=== PATIENT | male | born 1970 | race Caucasian/White ===

== ENCOUNTER 2022-04-07 08:59 | Day surgery (SDC) | payer BC, SELFPAY ==
[2022-04-01 12:41] VITALS: BMI 28.6
[2022-04-07] MEDS: Lactated Ringers 1,000 ML 50 ML IVCONT (09:18)
[2022-04-07 09:32] VITALS: BP 128/75; PULSE 61; RESP 18; TEMP 36.6; O2SAT 97
--- NOTE | 2022-04-07 10:19 | MHC.SHP ---
Pre-Procedural Eval Section A Date of Service: 04/07/22 Section B Chief Complaint: screening Details of Present Illness: see H&P no changes Relevant Family History (Specify if Yes): No Relevant Social History: None Present Medications: see Short Stay Collaborative assessment Medical History: No relevant PMH History of Previous Operations: No relevant previous surgery Allergies: Allergies Allergy/AdvReac Type Severity Reaction Status Date / Time cinnamon [CINNAMON] AdvReac Unknown oral Verified 04/07/22 09:10 irritation Review of Systems Sugical H&P ROS: Negative: Constitution, Cardiovascular, Respiratory, Neurological, Psychiatric, Hem-Onc, Allergic/Immunologic, Gastrointestinal, Genitourinary, Musculoskeletal, Integumentary, Endocrine and Eyes/Ears/Nose/Throat Exam Surgical H&P Exam: Normal: HEENT, Normal: Heart, Normal: Lungs, Normal: Extremities, Normal: Abdomen, Normal: Skin and Normal: Neurological Plan I have reviewed the history and physical and performed a pertinent physical examination on my patient. No changes have occurred unless specified.
--- NOTE | 2022-04-07 10:56 | P.BOP_ITS ---
Brief Operative Note Date of Service: 04/07/22 Pre-op diagnosis: screening Post-op diagnosis: same (colon polyp) Surgeon: Lewis Reardon Anesthesia: MAC Was an Vehicle And Equipment Cleaner used for this Procedure?: No Estimated blood loss (mL): 2 Pathology: other Condition: stable Disposition: PACU
[2022-04-07 10:59] VITALS: BP 84/47; PULSE 59; RESP 16; TEMP 36.4; O2SAT 96
[2022-04-07 11:06] VITALS: BP 96/54
--- NOTE | 2022-04-07 11:11 | OP_ITS ---
SURGEON: Lewis Reardon MD INDICATIONS: Colon cancer screening. PREOPERATIVE DIAGNOSIS: POSTOPERATIVE DIAGNOSIS: PROCEDURE PERFORMED: Colonoscopy to the terminal ileum with snare polypectomy. ESTIMATED BLOOD LOSS: COMPLICATIONS: ANESTHESIA: Monitored anesthesia care. ASSISTANTS: SPECIMENS: DESCRIPTION OF PROCEDURE: History and physical was performed. The risks and benefits of the procedure were explained to the patient. Informed consent was obtained. The patient was placed in the left lateral decubitus position. A digital rectal exam was performed and was found to be normal. The Olympus pediatric videocolonoscope was introduced into the rectum and advanced to the cecum without difficulty. The cecum was identified by transillumination, palpation, and identification of ileocecal valve. Examination was performed. The scope was removed. He tolerated the procedure well and was returned to recovery area in stable condition. FINDINGS: The terminal ileum was examined and appeared normal. The visualized colonic mucosa was normal. The quality of the prep was good. There was scattered diverticulosis that was mild. A single polyp at 50 cm was removed using a cold snare. The polyp measured approximately 6 mm. No other polyps were identified. Retroflexed examination showed some small internal hemorrhoids. IMPRESSION: Colon polyp. RECOMMENDATION: Follow up the biopsy results. MD LAZARA De La Cruz/SCHUYLER / [id number]
[2022-04-07 11:14] VITALS: BP 106/66; PULSE 56; RESP 18; O2SAT 97
[2022-04-07 11:29] VITALS: BP 118/73; PULSE 58; RESP 18; TEMP 36.7; O2SAT 97
--- NOTE | 2022-04-07 12:44 | P.CONAN_ITS ---
HPI - Anesthesia Eval Consult details Narrative: 51 M for routine colonoscopy [facility] Past Medical History Medical History HTN (hypertension) Hyperlipidemia Migraine headache Family History Family history of problems with anesthesia: No Surgical History Surgical History History of laparoscopic appendectomy History of right knee surgery Hx of colonoscopy History of Problems with Anesthesia: No Social History Social History Patient Tobacco Use Status: Never used Tobacco Are you DNR?: No Advance Directives: No Advance Directives Information Provided: Yes Nutrition Risks: No Nutritional Risk Meds Allergies Allergy/AdvReac Type Severity Reaction Status Date / Time cinnamon [CINNAMON] AdvReac Unknown oral Verified 04/07/22 09:10 irritation Home Medications Medication Instructions Recorded Confirmed Last Taken Type aspirin 81 mg tablet,delayed 81 mg PO DAILY 04/01/22 04/01/22 03/31/22 History release cholecalciferol (vitamin D3) 125 125 mcg PO DAILY 04/01/22 04/01/22 Unknown History mcg (5,000 unit) tablet (Vitamin D3) cyanocobalamin (vitamin B-12) 100 100 mcg PO DAILY 04/01/22 04/01/22 Unknown History mcg tablet (Vitamin B-12) magnesium 04/01/22 04/01/22 Unknown History multivitamin 1 tab PO DAILY 04/01/22 04/01/22 Unknown History propranolol 60 mg capsule,24 60 mg PO DAILY 04/01/22 04/01/22 04/07/22 History hr,extended release turmeric root extract 500 mg tablet 500 mg PO DAILY 04/01/22 04/01/22 Unknown History Exam Exam Date and Time: April 07, 2022 1244 Height,Weight and Vital Signs: Height 6 ft 2 in Weight 223 lb Last Vital Signs Temp 98.0 F 04/07/22 11:29 Pulse 58 04/07/22 11:29 Resp 18 04/07/22 11:29 BP 118/73 04/07/22 11:29 Pulse Ox 97 04/07/22 11:29 O2 Del Method 04/07/22 11:29 Airway Mallampati Class: I TM Dist: >3cm Neck ROM: Full Loose/Missing/Broken Teeth: No (fillings) Assessment and Plan Assessment Anesthesia Assessment: Anesthesia Plan Discussed and Chart Reviewed Final Anesthetic Review Family History of Problems with Anesthesia: No History of Problems with Anesthesia: No NPO: Yes ASA Class: II Final Preanesthetic Review: No Changes in Pt Med Stat, Meds/Allgs Chart Reviewed, Consent Obtained/Reviewed and Anes Risks/Benef Reviewed Patient Risk: Low Procedure Risk: Low Anesthetic Plan Anesthetic Plan: MAC: Disposition: Standard PACU
== END 2022-04-07 11:49 | disposition home or self-care (01) ==
PROVIDERS: PCP Internal Medicine; Visit Provider Internal Medicine Gastroenterology
PROC: 0DJD8ZZ Inspection of Lower Intestinal Tract, Via Natural or Artificial Opening Endoscopic (ICD-10-PCS; CPT 45378; principal; 2022-04-07 09:40)
DX: Z12.11 Encounter for screening for malignant neoplasm of colon (principal); K63.5 Polyp of colon; K57.30 Diverticulosis of large intestine without perforation or abscess without bleeding; K64.8 Other hemorrhoids; I10 Essential (primary) hypertension; E78.00 Pure hypercholesterolemia, unspecified; G43.909 Migraine, unspecified, not intractable, without status migrainosus; Z79.82 Long term (current) use of aspirin; Z79.899 Other long term (current) drug therapy
CPT/HCPCS: 45385; 88305

== ENCOUNTER 2023-05-16 22:15 | Emergency (ER) | payer OTHER, SELFPAY ==
--- NOTE | ~2023-05-16 | CT_ITS ---
EXAMINATION: CT ABDOMEN AND PELVIS WITHOUT CONTRAST CLINICAL INFORMATION: Right flank pain COMPARISON: None available. TECHNIQUE: Multidetector volumetric imaging was performed from the superior aspect of the liver through the pubic symphysis. Sagittal and coronal reformatted images were obtained on the technologist's workstation. This CT examination was performed using dose optimization techniques as appropriate, variously including the following: *Automated exposure control *Adjustment of mA and/or kV according to patient size (this includes techniques or standardized protocols for targeted exams where dose is matched to indication/reason for exam; i.e. extremities or head) *Use of iterative reconstruction technique DLP: 729 mGy-cm FINDINGS: LUNG BASES: The visualized lung bases are unremarkable. LIVER, GALLBLADDER, AND BILIARY TREE: The liver is normal in size, shape, and attenuation. No focal hepatic lesion or biliary ductal dilatation is present. Multiple small gallstones layering dependently in the gallbladder. PANCREAS: Unremarkable. SPLEEN: Unremarkable. ADRENAL GLANDS: Unremarkable. KIDNEYS AND URETERS: The kidneys are normal in size, shape, and attenuation. No hydronephrosis, hydroureter, or calculi seen. No perinephric stranding. BLADDER: Unremarkable. GASTROINTESTINAL TRACT: There are scattered diverticula of the sigmoid colon. There is no diverticulitis. There is no bowel wall thickening /edema. There is no bowel obstruction. There is a small to moderate volume of stool in the colon. The appendix is surgically absent . The small bowel loops are unremarkable. The stomach is normal. There is no hiatal hernia. ABDOMINAL WALL: No significant hernia is appreciated. LYMPH NODES: Normal. VASCULAR: Unremarkable. PELVIC VISCERA: Unremarkable. OSSEOUS STRUCTURES: Unremarkable. CT/CT abdomen pelvis wo IV con IMPRESSION: No acute abnormality CT scan abdomen pelvis. Fleischner guidelines were followed.
[2023-05-16 22:28] VITALS: BP 169/84; PULSE 56; RESP 16; TEMP 36.6; O2SAT 98; BMI 26.8
[2023-05-16] MEDS: ondansetron HCL 4 MG/2 ML VIAL IVPUSH (22:58)
[2023-05-16 22:59] VITALS: BP 171/91; PULSE 52; RESP 18; O2SAT 99
--- NOTE | 2023-05-16 23:10 | ED.ABDPAIN ---
HPI - Abdominal Pain General Chief Complaint: Abdominal Pain Stated Complaint: hernia, worsening pain in stomach Time Seen by Provider: 05/16/23 23:10 Source: patient Mode of arrival: ambulatory Limitations: no limitations History of Present Illness HPI narrative: Patient otherwise healthy with complaining of pain in the right mid abdomen and flank area for last 3 weeks off and on no relation with food feels slightly nauseated no urinary complaints no hematuria no frequency has seen his PCP who suspected as a hernia no history of gallstones patient is status post appendectomy Related Data Home Medications Medication Instructions Recorded Confirmed aspirin 81 mg tablet,delayed 81 mg PO DAILY 04/01/22 04/01/22 release cholecalciferol (vitamin D3) 125 125 mcg PO DAILY 04/01/22 04/01/22 mcg (5,000 unit) tablet (Vitamin D3) cyanocobalamin (vitamin B-12) 100 100 mcg PO DAILY 04/01/22 04/01/22 mcg tablet (Vitamin B-12) magnesium 04/01/22 04/01/22 multivitamin 1 tab PO DAILY 04/01/22 04/01/22 propranolol 60 mg capsule,24 60 mg PO DAILY 04/01/22 04/01/22 hr,extended release turmeric root extract 500 mg tablet 500 mg PO DAILY 04/01/22 04/01/22 Previous Rx's Medication Instructions Recorded ibuprofen 600 mg tablet 600 mg PO Q6H PRN fever or pain 05/17/23 #30 tabs Allergies Allergy/AdvReac Type Severity Reaction Status Date / Time cinnamon [CINNAMON] AdvReac Unknown oral Verified 04/07/22 09:10 irritation Review of Systems Review of Systems Yes all other systems are reviewed and are negative [facility] Past Medical History Medical History HTN (hypertension) Hyperlipidemia Migraine headache Surgical History History of laparoscopic appendectomy History of right knee surgery Hx of colonoscopy Social History Social History Alcohol intake: never Patient Tobacco Use Status: Never used Tobacco Smoked in Last 30 Days: No Use of substances other than those prescribed or required for medical reasons: No Advance Directives: No Advance Directives Information Provided: No Physical Exam ED Vital Signs: Vital Signs - 24 hr 05/16/23 22:28 05/16/23 22:59 Temperature 97.9 F Pulse Rate 56 52 Respiratory Rate 16 18 Blood Pressure 169/84 H 171/91 H Pulse Oximetry 98 99 Oxygen Delivery Method Room Air Room Air BMI result Body Mass Index 26.8 Appearance: Alert. Oriented X3. No acute distress. Eyes: PERRLA, No Nystagmus ENT: Pharynx normal. Oral Mucosa moist Neck: Normal inspection. Neck supple. CVS: Normal heart rate and rhythm. Pulses normal. Respiratory: No respiratory distress. Equal air entry bilateral, no wheezing/rales/rhonchi Abdomen: Soft and mild deep tenderness right mid abdomen Rodney sign negative. Bowel sounds are present, no mass palpable, no CVA tenderness Skin: Skin warm and dry. Normal skin color. Normal skin turgor. Extremities: No lower extremity edema. No calf tenderness Neuro: Oriented X 3. No motor deficit. No sensory deficit.No cerebellar signs , cranial nerves II-XII intact Medical Decision Making Medical Decision Making [facility] Narrative: Patient has gallstones in the CT scan without any cholecystitis findings no kidney stone noticed labs were normal patient advised to follow with surgeon Differential Diagnosis Differential Diagnoses: The differential diagnosis associated with the presentation includes Renal colic/UTI/gallstones Lab Data [facility] Lab Attestation statement: I reviewed the patient's lab results. 05/16/23 23:05 05/16/23 23:05 Labs: Lab Results 05/16/23 05/16/23 05/16/23 Range/Units 23:05 23:05 23:30 WBC 7.2 (4.8-10.8) X10*3/uL RBC 4.82 (4.60-5.80) X10*6/uL Hgb 15.3 (14.0-18.0) g/dl Hct 45.3 (42.0-52.0) % MCV 94.0 (80.0-98.0) fL MCH 31.7 (27.0-33.0) pg MCHC 33.8 (31.0-36.0) g/dl RDW 12.4 (11.0-16.0) % Plt Count 229 (160-400) X10*3/uL MPV 9.0 L (9.4-12.4) fL Immature Gran % (Auto) 0.1 (0.0-0.4) % Neut % (Auto) 60.4 (45-73) % Lymph % (Auto) 26.8 (20-40) % [place] % (Auto) 9.7 (2-11) % Eos % (Auto) 2.6 (0-4) % Baso % (Auto) 0.4 (0-2) % Lymph # (Auto) 1.9 (1.2-4.9) X10*3/uL [place] # (Auto) 0.7 (0.1-1.2) X10*3/uL Eos # (Auto) 0.2 (0.0-0.4) X10*3/uL Baso # (Auto) 0.0 (0.0-0.2) X10*3/uL Abs Immat Gran (auto) 0.01 (0.00-0.03) X10*3/uL Absolute Neuts (auto) 4.4 (2.0-8.3) x10*3/uL Absolute Nucleated RBC 0.000 (0.0-0.012) X10*3/uL Nucleated RBC % (auto) 0.0 (0.0-0.2) /100WBC Sodium 140 (135-145) mmol/L Potassium 4.5 (3.3-5.1) mmol/L Chloride 105 (96-108) mmol/L Carbon Dioxide 28 (22-29) mmol/L Anion Gap 12 (12-20) BUN 20 H (9-16) mg/dL Creatinine 0.93 (0.5-1.4) mg/dL Estim Creat Clear Calc 114.0 Estimated GFR > 60 Random Glucose 110 (60-115) mg/dL Calcium 9.5 (8.4-10.2) mg/dL Total Bilirubin 0.5 (0.0-1.0) mg/dL AST 26 (5-37) U/L ALT 27 (0-40) U/L Alkaline Phosphatase 57 (39-117) U/L Total Protein 7.5 (6.5-8.0) g/dL Albumin 4.4 (3.5-5.0) g/dL Urine Color Yellow Urine Appearance Clear Urine pH 5.5 (5.0-9.0) Ur Specific [place] 1.025 (1.005-1.025) Urine Protein Negative (Neg-Trace) mg/dL Urine Glucose (UA) Negative (Negative) mg/dL Urine Ketones Negative (Negative) mg/dL Urine Blood Negative (Negative) Urine Nitrite Negative (Negative) Ur Leukocyte Esterase Negative (Negative) Urine RBC 0-2 (0-2) /HPF Urine WBC 0-5 (0-5) /HPF Ur Squamous Epith Cells 0-2 (0-2) /HPF Urine Bacteria None Seen (None Seen) Hyaline Casts 0-2 (0-2) /LPF Radiology Impression Discussion of test interpretation with radiology: I have reviewed the radiologist's reading. Radiologist Impression: [address] [address] [address] Scan Report Signed Patient: Payam Dejesus MR#: [id number] : 1970 Acct:[id number] Age/Sex: 52 / M ADM Date: 05/16/23 Loc: HO.ED Attending Dr: Ordering Physician: Fred Potts MD Date of Service: 05/16/23 Procedure(s): CT abdomen pelvis wo IV con Accession Number(s): [id number] cc: Richar Lopez MD; Fred Potts MD~ EXAMINATION: CT ABDOMEN AND PELVIS WITHOUT CONTRAST? CLINICAL INFORMATION: Right flank pain? COMPARISON: None available. TECHNIQUE: Multidetector volumetric imaging was performed from the superior aspect of the liver through the pubic symphysis. Sagittal and coronal reformatted images were obtained on the technologist's workstation.? This CT examination was performed using dose optimization techniques as appropriate, variously including the following: *Automated exposure control *Adjustment of mA and/or kV according to patient size (this includes techniques or standardized protocols for targeted exams where dose is matched to indication/reason for exam; i.e. extremities or head) *Use of iterative reconstruction technique DLP: 729 mGy-cm FINDINGS: LUNG BASES: The visualized lung bases are unremarkable.? LIVER, GALLBLADDER, AND BILIARY TREE: The liver is normal in size, shape, and attenuation. No focal hepatic lesion or biliary ductal dilatation is present. Multiple small gallstones layering dependently in the gallbladder.? PANCREAS: Unremarkable.? SPLEEN: Unremarkable.? ADRENAL GLANDS: Unremarkable.? KIDNEYS AND URETERS: The kidneys are normal in size, shape, and attenuation. No hydronephrosis, hydroureter, or calculi seen. No perinephric stranding. ? BLADDER: Unremarkable.? GASTROINTESTINAL TRACT: There are scattered diverticula of the sigmoid colon. There is no diverticulitis. There is no bowel wall thickening /edema. There is no bowel obstruction. There is a small to moderate volume of stool in the colon. The appendix is surgically absent . The small bowel loops are unremarkable. The stomach is normal. There is no hiatal hernia.? ABDOMINAL WALL: No significant hernia is appreciated.? LYMPH NODES: Normal. VASCULAR: Unremarkable. PELVIC VISCERA: Unremarkable.? OSSEOUS STRUCTURES: Unremarkable.? CT/CT abdomen pelvis wo IV con IMPRESSION: No acute abnormality CT scan abdomen pelvis. ? Fleischner guidelines were followed. Dictated By: Emre Pena MD Signed By: <Electronically signed by Emre Pena MD in OV> 05/16/23 2349 DD/ 2330 TD/TT:? Charge Attendant: GRAHAM Medications Administered Discontinued Medications Generic Name Dose Route Start Last Admin Trade Name Freq PRN Reason Stop Dose Admin Sodium Chloride 1,000 mls @ 999 mls/hr 05/16/23 23:15 05/17/23 00:20 Ns IV 05/17/23 00:15 Infused .Q1H1M ONE Infusion Ketorolac Tromethamine 30 mg 05/16/23 23:14 05/16/23 23:25 Ketorolac Tromethamine 30 Mg/Ml Vial IVPUSH 05/16/23 23:15 30 mg ONCE ONE Administration Ondansetron HCl 4 mg 05/16/23 22:54 05/16/23 22:58 Ondansetron Hcl 4 Mg/2 Ml Vial IVPUSH 05/16/23 22:55 4 mg ONCE ONE Administration Discharge Plan Discharge Clinical Impression: Cholelithiasis Patient Disposition: Home, Self-Care Instructions: Gallstones (ED) Additional Instructions: Avoid fried food Follow with surgeon for gallstones Report to the ER if worsening of pain Ibuprofen for pain Prescriptions: New ibuprofen 600 mg tablet 600 mg PO Q6H PRN (Reason: fever or pain) Qty: 30 0RF No Action multivitamin Tablet 1 tab PO DAILY cyanocobalamin (vitamin B-12) [Vitamin B-12] 100 mcg Tablet 100 mcg PO DAILY propranolol 60 mg Capsule,Extended Release 24 Hr 60 mg PO DAILY aspirin 81 mg Tablet,Delayed Release (Dr/Ec) 81 mg PO DAILY cholecalciferol (vitamin D3) [Vitamin D3] 125 mcg (5,000 unit) Tablet 125 mcg PO DAILY turmeric root extract 500 mg Tablet 500 mg PO DAILY magnesium Referrals: Terrell Adorno MD [Physician] - 5 days
[2023-05-16 23:11] LABS: Basophils Percent Auto 0.4 % (0-2); Eosinophils Absolute Auto 0.2 X10*3/uL (0.0-0.4); Eosinophils Percent Auto 2.6 % (0-4); Hematocrit 45.3 % (42.0-52.0); Hemoglobin 15.3 g/dl (14.0-18.0); Imm Gran Abs Auto 0.01 X10*3/uL (0.00-0.03); Imm Gran Pct Auto 0.1 % (0.0-0.4); Lymphocytes Absolute Auto 1.9 X10*3/uL (1.2-4.9); Lymphocytes Percent Auto 26.8 % (20-40); MANUAL DIFF FLAG NO; Mean Corpuscular HGB Conc 33.8 g/dl (31.0-36.0); Mean Corpuscular Hemoglobin 31.7 pg (27.0-33.0); Monocytes Absolute Auto 0.7 X10*3/uL (0.1-1.2); Monocytes Percent Auto 9.7 % (2-11); Neutrophils Absolute Auto 4.4 x10*3/uL (2.0-8.3); Neutrophils Percent Auto 60.4 % (45-73); Platelet Count 229 X10*3/uL (160-400); Red Blood Count 4.82 X10*6/uL (4.60-5.80); Red Cell Distribution Width 12.4 % (11.0-16.0); White Blood Count 7.2 X10*3/uL (4.8-10.8)
[2023-05-16] MEDS: 0.9 % Sodium Chloride 1,000 ML 999 ML IV (23:25)
[2023-05-16] MEDS: Ketorolac Tromethamine 30 MG/ML VIAL IVPUSH (23:25)
[2023-05-16 23:27] LABS: Alanine Aminotransferase 27 U/L (0-40); Albumin Level 4.4 g/dL (3.5-5.0); Alkaline Phosphatase 57 U/L (39-117); Anion Gap 12 (12-20); Aspartate Amino Transferase 26 U/L (5-37); Bilirubin Total 0.5 mg/dL (0.0-1.0); Blood Urea Nitrogen 20 mg/dL (9-16); Calcium 9.5 mg/dL (8.4-10.2); Carbon Dioxide 28 mmol/L (22-29); Chloride 105 mmol/L (96-108); Estimated Glomerular Filt Rate > 60; Glucose Random 110 mg/dL (60-115); Potassium 4.5 mmol/L (3.3-5.1); Sodium 140 mmol/L (135-145); Total Protein 7.5 g/dL (6.5-8.0)
[2023-05-16 23:36] LABS: Appearance Urine Clear; Color Urine Yellow; Glucose Urine UA Negative (Negative); Leukocyte Esterase Urine Negative (Negative); Nitrite Urine Negative (Negative); PH 5.5 (5.0-9.0); Specific Gravity - Urine 1.025 (1.005-1.025); Urine Blood Negative (Negative); Urine Ketones Negative (Negative); Urine Protein Negative (Neg-Trace)
[2023-05-16 23:41] LABS: Bacteria Urine None Seen (None Seen); Hyaline Casts Urine 0-2 /LPF (0-2); RBC Urine 0-2 /HPF (0-2); Squamous Epithelial Cell Urine 0-2 /HPF (0-2); WBC Urine 0-5 /HPF (0-5)
== END 2023-05-17 00:33 | disposition home or self-care (01) ==
PROVIDERS: Emergency Provider Internal Medicine; PCP Internal Medicine
DX: K80.20 Calculus of gallbladder without cholecystitis without obstruction (principal); R10.9 Unspecified abdominal pain; Z79.899 Other long term (current) drug therapy
CPT/HCPCS: 36415; 74176; 80053; 81001; 85025; 96361; 96374; 96375; 99284; 99285; J1885; J2405

== ENCOUNTER 2023-05-20 10:12 | Outpatient (AMB) | payer OTHER, SELFPAY ==
[2023-05-20 10:22] VITALS: BP 141/62; PULSE 63; BMI 26.7
--- NOTE | 2023-05-20 10:22 | A.OFFVIS_ITS ---
Intake Vital Signs 05/20/23 10:22 Height 6 ft 4 in Weight 219 lb BMI 26.7 BP 141/62 H Blood Pressure Location Rt brachial Position Sitting Pulse 63 Intake Visit Reasons: Cholelithiasis, possible hernia Intake Note: This patient presents for an assessment for cholelithiasis and possible hernia. Patient c/o; Onset 1 month right groin weird sensation , reports RUQ pain radiating towards back, reports having nausea and vomiting, reports recent ER visit on 05/16/23 had Abd/pelvis Ct. Private Duty Nurse Required: No Accompanied by: Self / Same As Patient Allergies cinnamon [CINNAMON] Adverse Reaction (Unknown, Verified 05/20/23 10:31) oral irritation Medication List - Last Reconciled 05/20/23 by Terrell Adorno MD aspirin 81 mg PO DAILY cholecalciferol (vitamin D3) (Vitamin D3) 125 mcg PO DAILY cyanocobalamin (vitamin B-12) (Vitamin B-12) 100 mcg PO DAILY ibuprofen 600 mg PO Q6H PRN [magnesium ] multivitamin 1 tab PO DAILY propranolol ER 60 mg PO DAILY turmeric root extract 500 mg PO DAILY HPI Cholelithiasis, possible hernia HPI Details 52-year-old male referred for gallstones . He went to the ER last 05/16/2023 because of right upper quadrant pain radiating to the back. His CAT scan revealed multiple small gallstones. His LFTs were normal. He said he has had these episodes on and off for a couple of years now. He says that this usually happen after he has have big meal. He says that he had a particularly severe episode just before he went to the ER. He says that because of the pain he was also nauseous at that time. [facility] Medical History (Updated 05/20/23 @ 11:03 by Terrell Adorno MD) Gallstones Migraine headache Hyperlipidemia HTN (hypertension) Surgical History History of right knee surgery History of laparoscopic appendectomy Hx of colonoscopy Social History Alcohol intake: never Patient Tobacco Use Status: Never used Tobacco Review of Systems Const Denies chills and Denies fever(s) Card Denies chest pain, Denies dyspnea and Denies dyspnea on exertion Resp Denies cough, Denies dyspnea and Denies dyspnea on exertion GI Denies hematochezia and Denies change in bowel habits Denies hematuria and Denies difficulty urinating Musc Denies back pain and Denies limited range of motion Neuro Details: Migraines Denies focal weakness and Denies convulsions Psych Denies depression and Denies mood swings Physical Exam Vital Signs: Last Vital Signs Pulse 63 05/20/23 10:22 BP 141/62 H 05/20/23 10:22 BMI result Body Mass Index 26.7 Const General: comfortable and no acute distress Orientation/consciousness: patient oriented x3 Neck Neck: Yes no lymphadenopathy Resp Auscultation: clear to auscultation bilaterally Cardio Rhythm: regular rhythm GI Palpation (GI): Soft to palpation, nontender and no guarding Neuro General: patient oriented x3 Assessment & Plan Assessment & Plan (1) Gallstones: Code(s): K80.20 - Calculus of gallbladder without cholecystitis without obstruction Plan: He has gallstones seen on CT scan with associated symptoms of right quadrant pain. Had a long discussion with him about the option of proceeding with cholecystectomy. I discussed the technique of laparoscopic cholecystectomy and possible open cholecystectomy. I reviewed the risks including but not limited to bleeding, infections, bowel injury, injury to the liver or the bile ducts, bile leak, retained stones, as well as the benefits and alternatives. I reviewed with him what to expect postoperatively. He says he is planning to have the surgery done because of symptoms but is uncertain as to when as he has been very busy with regards to work. He says that he has some occasional right groin pain and I reviewed his CAT scan and this does not reveal a hernia on the right groin area. Coding Level of Care Code New Pt Level 3 (33194) Diagnoses Gallstones K80.20
== END 2023-05-20 11:09 | disposition home or self-care (01) ==
PROVIDERS: PCP Internal Medicine; Visit Provider Surgery
DX: K80.20 Calculus of gallbladder without cholecystitis without obstruction (principal)
CPT/HCPCS: 99203

== ENCOUNTER → 2023-05-20 10:12 | Outpatient (BNVA) | payer OTHER, SELFPAY | PROVIDERS: PCP Internal Medicine; Visit Provider Surgery ==

== ENCOUNTER 2023-07-30 07:27 | Day surgery (SDC) | payer OTHER, SELFPAY ==
[2023-07-28 13:33] VITALS: BMI 26.7
--- NOTE | 2023-07-29 09:35 | P.CONAN_ITS ---
Documented by User: Delaney Anderson NP 07/29/23 09:35 HPI - Anesthesia Eval Consult details Narrative: 52yo F for Cholecystectomy Laparoscopic, possible open PMFSH Active Problems Active Problems: All Active Problems (Updated 05/20/23 @ 11:03 by Terrell Adorno MD) Gallstones (Acute) Past Medical History Medical History (Updated 05/20/23 @ 11:03 by Terrell Adorno MD) Gallstones Migraine headache Hyperlipidemia HTN (hypertension) Family History Family history of problems with anesthesia: No Surgical History Surgical History (Updated 07/28/23 @ 13:31 by Nani Arriaza RN) History of right knee surgery History of laparoscopic appendectomy Hx of colonoscopy History of Problems with Anesthesia: No Social History Alcohol intake: never Patient Tobacco Use Status: Never used Tobacco Are you DNR?: No Advance Directives: No Advance Directives Information Provided: Yes Meds Allergies Allergy/AdvReac Type Severity Reaction Status Date / Time cinnamon [CINNAMON] AdvReac Unknown oral Verified 05/20/23 10:31 irritation Home Medications Medication Instructions Recorded Confirmed Last Taken Type aspirin 81 mg tablet,delayed 81 mg PO DAILY 04/01/22 07/28/23 07/29/23 History release cholecalciferol (vitamin D3) 125 125 mcg PO DAILY 04/01/22 07/28/23 Unknown History mcg (5,000 unit) tablet (Vitamin D3) cyanocobalamin (vitamin B-12) 100 100 mcg PO DAILY 04/01/22 07/28/23 Unknown History mcg tablet (Vitamin B-12) magnesium 04/01/22 05/20/23 Unknown History multivitamin 1 tab PO DAILY 04/01/22 07/28/23 Unknown History propranolol 60 mg capsule,24 60 mg PO DAILY 04/01/22 07/28/23 04/07/22 History hr,extended release turmeric root extract 500 mg tablet 500 mg PO DAILY 04/01/22 07/28/23 Unknown History Exam Height,Weight and Vital Signs: Height 6 ft 4 in Weight 99.337 kg Pertinent Lab Results Pertinent Lab Results: Laboratory Tests 05/16/23 23:05 WBC 7.2 Hgb 15.3 Hct 45.3 Plt Count 229 Sodium 140 Potassium 4.5 Chloride 105 Carbon Dioxide 28 BUN 20 H Creatinine 0.93 Assessment and Plan Assessment Anesthesia Assessment: Chart Reviewed Final Anesthetic Review Family History of Problems with Anesthesia: No History of Problems with Anesthesia: No Documented by User: Moises Ramos MD 08/05/23 16:42 [facility] Past Medical History Medical History (Updated 05/20/23 @ 11:03 by Terrell Adorno MD) Gallstones Migraine headache Hyperlipidemia HTN (hypertension) Functional capacity: independent ambulation Surgical History Surgical History (Updated 07/28/23 @ 13:31 by Nani Arriaza RN) History of right knee surgery History of laparoscopic appendectomy Hx of colonoscopy Social History Alcohol intake: never Patient Tobacco Use Status: Never used Tobacco Are you DNR?: No Advance Directives: No Advance Directives Information Provided: Yes Meds Allergies Allergy/AdvReac Type Severity Reaction Status Date / Time cinnamon [CINNAMON] AdvReac Unknown oral Verified 05/20/23 10:31 irritation Home Medications Medication Instructions Recorded Confirmed Last Taken Type aspirin 81 mg tablet,delayed 81 mg PO DAILY 04/01/22 07/28/23 07/29/23 History release cholecalciferol (vitamin D3) 125 125 mcg PO DAILY 04/01/22 07/28/23 Unknown History mcg (5,000 unit) tablet (Vitamin D3) cyanocobalamin (vitamin B-12) 100 100 mcg PO DAILY 04/01/22 07/28/23 Unknown History mcg tablet (Vitamin B-12) magnesium 04/01/22 05/20/23 Unknown History multivitamin 1 tab PO DAILY 04/01/22 07/28/23 Unknown History propranolol 60 mg capsule,24 60 mg PO DAILY 04/01/22 07/28/23 04/07/22 History hr,extended release turmeric root extract 500 mg tablet 500 mg PO DAILY 04/01/22 07/28/23 Unknown History Exam Airway Mallampati Class: IV TM Dist: >3cm Neck ROM: Full Loose/Missing/Broken Teeth: Yes (chipped teeth) Assessment and Plan Assessment Anesthesia Assessment: Anesthesia Plan Discussed Final Anesthetic Review NPO: Yes ASA Class: II Final Preanesthetic Review: Meds/Allgs Chart Reviewed, Consent Obtained/Reviewed and Anes Risks/Benef Reviewed Patient Risk: Intermediate Procedure Risk: Intermediate Anesthetic Plan Anesthetic Plan: GA and Agree w/ Assess. and Plan Disposition: Standard PACU
[2023-07-30] VITALS (8 sets, daily range): BP systolic 106–139; BP diastolic 59–78; PULSE 55–73; RESP 15–18; TEMP 36.1–37.1; O2SAT 95–98; BMI 26.7
[2023-07-30] MEDS: Lactated Ringers 1,000 ML 100 ML IVCONT (08:01)
--- NOTE | 2023-07-30 08:59 | MHC.SHP ---
Pre-Procedural Eval Section A Date of Service: 07/30/23 Section B Chief Complaint: Calculus of gallbladder without cholecystitis with Details of Present Illness: has galltones with symptoms, now ready to proceed with lap paresh Relevant Family History (Specify if Yes): No Relevant Social History: None Present Medications: see Short Stay Collaborative assessment Medical History: No relevant PMH Allergies: Allergies Allergy/AdvReac Type Severity Reaction Status Date / Time cinnamon [CINNAMON] AdvReac Unknown oral Verified 05/20/23 10:31 irritation Review of Systems Sugical H&P ROS: Negative: Constitution, Cardiovascular, Respiratory, Neurological, Psychiatric, Hem-Onc, Allergic/Immunologic, Gastrointestinal, Genitourinary, Musculoskeletal, Integumentary, Endocrine and Eyes/Ears/Nose/Throat Exam Surgical H&P Exam: Normal: HEENT, Normal: Heart, Normal: Lungs, Normal: Extremities, Normal: Abdomen, Normal: Skin and Normal: Neurological Plan Diagnosis/Plan: Unchanged I have reviewed the history and physical and performed a pertinent physical examination on my patient. No changes have occurred unless specified. Time Spent With Patient Time: Total time managing care of this patient today ____ minutes.
--- NOTE | 2023-07-30 09:47 | P.OP_ITS ---
Operative Note Operative Note Date of Service: 07/30/23 Narrative: Preop diagnosis: Symptomatic gallstones Postop diagnosis: The same Procedure: Laparoscopic cholecystectomy Surgeon: Terrell Adorno MD transportation assistant: WILLA Ibarra The patient is a 52-year-old male noted to have gallstones with periodic right upper quadrant pain. In view of his symptomatic gallstones, he wanted to proceed with cholecystectomy. He understood the technique of laparoscopic cholecystectomy. He was aware of the risks, benefits, and alternatives. He was brought to the operating room. He was placed supine under general anesthesia via endotracheal tube. The abdomen was prepped and draped in the usual sterile fashion. A surgical time-out was done. The patient received Cefotan 2 g IV preoperatively. I made a short supraumbilical incision using a blade 15. This was carried down through the full-thickness of the skin and subcutaneous fat down to the fascia. The fascia was incised. The peritoneum was entered. Through this incision a Deshawn port was introduced. Pneumoperitoneum was introduced to a pressure of 15 mm hg. From here on the rest of the procedure was done under vision with a 10 mm 0 degree laparoscope. With laparoscopic visualization, I inserted a 5/12 mm port in the epigastric area below the subcostal margin. Two 5 mm ports were introduced through small incisions below the subcostal margin along the anterior axillary line and the midclavicular line. Graspers were placed through these working ports. The patient was placed in head-up and [id number] position. The gallbladder was seen. This was supple and non inflamed. I applied a grasper towards the fundus and this was used to retract the gallbladder cephalad. I applied another grasper towards the pouch of the gallbladder and this was used to retract the gallbladder laterally. At this point, the gallbladder was being retracted in a cephalad and lateral fashion to put the area of the area of the cystic duct on stretch. I proceeded to use the [place] dissector to carefully dissect the neck of the gallbladder of fatty areolar tissue. By doing so I was able to visualize the cystic duct. I carefully defined this using the [place] dissector. I was able to confirm the confluence of the neck of the gallbladder with the cystic duct. We were able to achieve a critical view of the hepatocystic triangle and there were no other structures seen except for what appeared to be a small cystic artery. I applied clips on the cystic duct with 2 clips being applied distally. The cystic duct was transected between clips with Endo scissors. I applied clips on the cystic artery with 2 clips being applied distally and the cystic artery was instructed between clips with Endo scissors With traction on the gallbladder away from the liver bed, I proceeded to then divide across the hilum using the electrocautery spatula. I incised the peritoneum of the gallbladder and found a plane of dissection between the gallbladder wall and the liver bed. I proceeded to separate the gallbladder off of the liver bed along this well-defined plane using a combination of blunt dissection with the tip of the spatula and electrocautery. We continued with this dissection all way to the fundus until the entire gallbladder was completely from the liver bed. The gallbladder was retrieved through an endobag through the umbilical incision. I reinserted all ports and re-in sufflated. I examined the subhepatic space and the liver bed. This was noted to be dry and hemostatic. The clips were in place. I examined all 4 quadrants laparoscopically. There was no other pathology seen. There was no suggestion of any bowel injury. I re-examined the subhepatic space one final time and this appeared to be dry. I therefore desufflated through the port sites. I removed all ports under vision with the laparoscope. The umbilical port was removed last. The fascia of the umbilical incision was closed with [id number] Polysorb 0 stitch. Skin closure was achieved on all incisions using polysord 4-0 subcuticular running sutures. All incisions were infiltrated with Marcaine 0.5% for postop analgesia. Dressings were applied. The procedure was completed. The patient tolerated the procedure well. There were no immediate complications. Initial and final counts of sponges and instruments were correct. Estimated blood loss was about 10 cc The patient was extubated without difficulty and transferred to the recovery room with stable vital signs.
[2023-07-30] MEDS: oxyCODONE HCl Immed Release 5 MG TABLET PO (11:46)
== END 2023-07-30 11:49 | disposition home or self-care (01) ==
PROVIDERS: PCP Internal Medicine; Visit Provider Surgery
PROC: 0FT44ZZ Resection of Gallbladder, Percutaneous Endoscopic Approach (ICD-10-PCS; CPT 47562; principal; 2023-07-30 09:00)
DX: K80.20 Calculus of gallbladder without cholecystitis without obstruction (principal); I10 Essential (primary) hypertension; E78.5 Hyperlipidemia, unspecified; G43.909 Migraine, unspecified, not intractable, without status migrainosus; Z79.82 Long term (current) use of aspirin; Z79.1 Long term (current) use of non-steroidal anti-inflammatories (NSAID); Z79.899 Other long term (current) drug therapy; Z98.890 Other specified postprocedural states
CPT/HCPCS: 47562; 88304; J0131; J0665; J1100; J1170; J2250; J2405; J2704; J3010

== ENCOUNTER → 2023-07-30 07:27 | Outpatient (BNV) | payer OTHER, SELFPAY | PROVIDERS: PCP Internal Medicine; Visit Provider Surgery | DX: K80.20 Calculus of gallbladder without cholecystitis without obstruction (principal) | CPT/HCPCS: 47562 ==

== ENCOUNTER 2023-08-12 09:21 | Outpatient (AMB) | payer OTHER, SELFPAY ==
--- NOTE | 2023-08-12 09:22 | MHC.OFFVIS ---
Intake Vital Signs 08/12/23 09:28 Weight 224 lb BP 148/70 H Blood Pressure Location Rt brachial Position Sitting Pulse 57 Intake Visit Reasons: S/p lap paresh Intake Note: This patient presents for a post-op assessment status post laparoscopic cholecystectomy. Patient c/o; reports no changes or complaints at this time. Still Operator Whiskey Required: No Accompanied by: Self / Same As Patient Allergies cinnamon [CINNAMON] Adverse Reaction (Unknown, Verified 08/12/23 09:22) oral irritation HPI S/p lap paresh HPI Details He is here for a postop visit. He underwent laparoscopic cholecystectomy last 07/30/2023. He tolerated procedure well. He currently denies complaints. COUNTS INCLUDE 234 BEDS AT THE [facility] Medical History Gallstones Migraine headache Hyperlipidemia HTN (hypertension) Surgical History Hx laparoscopic cholecystectomy (~07/30/23) History of right knee surgery History of laparoscopic appendectomy Hx of colonoscopy Social History Alcohol intake: never Patient Tobacco Use Status: Never used Tobacco Review of Systems Const Denies chills and Denies fever(s) Card Denies chest pain, Denies dyspnea and Denies dyspnea on exertion Resp Denies cough, Denies dyspnea and Denies dyspnea on exertion GI Denies hematochezia and Denies change in bowel habits Denies hematuria and Denies difficulty urinating Musc Denies back pain and Denies limited range of motion Neuro Denies focal weakness and Denies convulsions Psych Denies depression and Denies mood swings Physical Exam Vital Signs: Last Vital Signs Pulse 57 08/12/23 09:28 BP 148/70 H 08/12/23 09:28 Const General: comfortable and no acute distress Eyes Sclerae: sclerae normal GI Other: All incisions well healed, not infected, Palpation (GI): Soft to palpation and not firm Assessment & Plan Assessment & Plan (1) Gallstones: Code(s): K80.20 - Calculus of gallbladder without cholecystitis without obstruction Plan: Status post cholecystectomy. He is doing very well. All incisions are well healed. His path report shows gallstones and mild chronic cholecystitis I advised him to avoid any lifting more than 20 lb for about 2 more weeks. He can otherwise follow up on a p.r.n. basis. Coding Level of Care Code Global (60554) Diagnoses Gallstones K80.20
[2023-08-12 09:28] VITALS: BP 148/70; PULSE 57
== END 2023-08-12 09:51 | disposition home or self-care (01) ==
PROVIDERS: PCP Internal Medicine; Visit Provider Surgery
DX: K80.20 Calculus of gallbladder without cholecystitis without obstruction (principal)
CPT/HCPCS: 99024

== ENCOUNTER → 2023-08-12 09:21 | Outpatient (BNVA) | payer OTHER, SELFPAY | PROVIDERS: PCP Internal Medicine; Visit Provider Surgery ==

== ENCOUNTER 2023-10-14 09:36 | Outpatient (AMB) | payer OTHER, SELFPAY ==
--- NOTE | 2023-10-14 09:38 | A.OFFVIS_ITS ---
Intake Vital Signs 10/14/23 09:46 Weight 231 lb BP 137/66 Blood Pressure Location Rt brachial Position Sitting Pulse 75 Intake Visit Reasons: Calculus of gallbladder Intake Note: This patient presents for a follow-up assessment status post laparoscopic cholecystectomy. Patient c/o; reports right groin pain, reports ? hernia, reports onset of pain is usually at the end of the day. Material Requisitioner Required: No Accompanied by: Self / Same As Patient Allergies cinnamon [CINNAMON] Adverse Reaction (Unknown, Verified 10/14/23 09:47) oral irritation Medication List - Last Reconciled 10/14/23 by Terrell Adorno MD aspirin 81 mg PO DAILY cholecalciferol (vitamin D3) (Vitamin D3) 125 mcg PO DAILY cyanocobalamin (vitamin B-12) (Vitamin B-12) 100 mcg PO DAILY ibuprofen 600 mg PO Q6H PRN ibuprofen 600 mg PO Q6H PRN [magnesium ] multivitamin 1 tab PO DAILY oxycodone-acetaminophen 5-325 mg (Percocet) 1 tab PO Q4-6H PRN propranolol ER 60 mg PO DAILY turmeric root extract 500 mg PO DAILY HPI Calculus of gallbladder HPI Details He is here because of his persistent right groin pain. He says that usually happens at night after he has had been busy for during the day. He denies an obvious palpable mass but he says that the right groin pain can be annoying. He denies GI complaints. [facility] Medical History Right groin pain Gallstones Migraine headache Hyperlipidemia HTN (hypertension) Surgical History Hx laparoscopic cholecystectomy (~07/30/23) History of right knee surgery History of laparoscopic appendectomy Hx of colonoscopy Social History Alcohol intake: never Patient Tobacco Use Status: Never used Tobacco Review of Systems Const Denies chills and Denies fever(s) Card Denies chest pain, Denies dyspnea and Denies dyspnea on exertion Resp Denies cough, Denies dyspnea and Denies dyspnea on exertion GI Denies hematochezia and Denies change in bowel habits Denies hematuria and Denies difficulty urinating Musc Denies back pain and Denies limited range of motion Neuro Denies focal weakness and Denies convulsions Psych Denies depression and Denies mood swings Physical Exam Vital Signs: Last Vital Signs Pulse 75 10/14/23 09:46 BP 137/66 10/14/23 09:46 Const General: comfortable and no acute distress Resp Effort & Inspection: normal respiratory effort Cardio Rate: regular rate GI Other: I am unable able to feel for an obvious hernia with Valsalva maneuvers Palpation (GI): Soft to palpation, not firm, nontender and no guarding Assessment & Plan Assessment & Plan (1) Right groin pain: Code(s): R10.31 - Right lower quadrant pain Plan: He continues to have this right groin pain especially at night towards the end of the day. Presentation is suspicious for a right inguinal hernia but I am unable to feel an obvious mass. I have reviewed his CAT scan from before and this does not reveal any hernia I am going to therefore repeat his CT scan. I will see him again in the office to review the findings. Orders: Orders CT abdomen pelvis wo IV con Today R10.31 - Right lower quadrant pain Coding Level of Care Code Est Pt Level 3 (08590) Diagnoses Right groin pain R10.31
[2023-10-14 09:46] VITALS: BP 137/66; PULSE 75
== END 2023-10-14 10:00 | disposition home or self-care (01) ==
PROVIDERS: PCP Internal Medicine; Visit Provider Surgery
DX: R10.31 Right lower quadrant pain (principal)
CPT/HCPCS: 99213

== ENCOUNTER → 2023-10-14 09:36 | Outpatient (BNVA) | payer OTHER, SELFPAY | PROVIDERS: PCP Internal Medicine; Visit Provider Surgery ==

== ENCOUNTER 2023-11-12 14:22 | Outpatient (REF) | payer OTHER, SELFPAY ==
--- NOTE | ~2023-11-12 | CT_ITS ---
EXAMINATION: CT ABDOMEN AND PELVIS WITHOUT CONTRAST CLINICAL INFORMATION: Right lower quadrant pain COMPARISON: 05/16/2023 TECHNIQUE: Multidetector volumetric imaging was performed from the superior aspect of the liver through the pubic symphysis. Sagittal and coronal reformatted images were obtained on the technologist's workstation. This CT examination was performed using dose optimization techniques as appropriate, variously including the following: *Automated exposure control *Adjustment of mA and/or kV according to patient size (this includes techniques or standardized protocols for targeted exams where dose is matched to indication/reason for exam; i.e. extremities or head) *Use of iterative reconstruction technique DLP: 661 mGy-cm FINDINGS: LUNG BASES: The visualized lung bases are unremarkable. LIVER, GALLBLADDER, AND BILIARY TREE: The liver is normal in size, shape, and attenuation. No focal hepatic lesion or biliary ductal dilatation is present. Gallbladder is surgically absent. PANCREAS: Unremarkable. SPLEEN: Unremarkable. ADRENAL GLANDS: Unremarkable. KIDNEYS AND URETERS: The kidneys are normal in size, shape, and attenuation. No hydronephrosis, hydroureter, or calculi seen. No perinephric stranding. BLADDER: Unremarkable. GASTROINTESTINAL TRACT: Scattered diverticula seen in the sigmoid colon without evidence of diverticulitis or colitis. Appendix is surgically absent. Loops of small bowel unremarkable. ABDOMINAL WALL: There is small fat-containing umbilical hernia but no evidence of inguinal hernias. LYMPH NODES: Normal. VASCULAR: Unremarkable. PELVIC VISCERA: Unremarkable. OSSEOUS STRUCTURES: Unremarkable. CT/CT abdomen pelvis wo IV con IMPRESSION: No explanation for right lower quadrant pain. Status post cholecystectomy and appendectomy. Fleischner guidelines were followed.
== END 2023-11-12 14:23 | disposition home or self-care (01) ==
LOC: HO.CT 14:22
PROVIDERS: PCP Internal Medicine; Visit Provider Surgery
DX: R10.31 Right lower quadrant pain (principal)
CPT/HCPCS: 74176

== ENCOUNTER 2024-02-10 10:57 | Outpatient (AMB) | payer OTHER, SELFPAY ==
--- NOTE | 2024-02-10 11:00 | A.OFFVIS_ITS ---
Intake Visit Reasons: CT results Intake Note: This patient presents for a follow-up for CT results. Patient c/o; reports no complaints. Interactive Media Project Manager Required: No Accompanied by: Self / Same As Patient Allergies cinnamon [CINNAMON] Adverse Reaction (Unknown, Verified 02/10/24 11:01) oral irritation Medication List - Last Reconciled 02/10/24 by Terrell Adorno MD aspirin 81 mg PO DAILY cholecalciferol (vitamin D3) (Vitamin D3) 125 mcg PO DAILY cyanocobalamin (vitamin B-12) (Vitamin B-12) 100 mcg PO DAILY ibuprofen 600 mg PO Q6H PRN ibuprofen 600 mg PO Q6H PRN [magnesium ] multivitamin 1 tab PO DAILY oxycodone-acetaminophen 5-325 mg (Percocet) 1 tab PO Q4-6H PRN propranolol ER 60 mg PO DAILY turmeric root extract 500 mg PO DAILY HPI HPI CT results: Details: He is here for follow-up for his right groin pain. He has had this point tenderness and pain on the right groin since April of last year. He says that he feels this more when he is sneezing or when he is ?gagging?. He says he exercises regularly and he does not have problem with pain. He denies any palpable mass on the area even with Valsalva. I had already sent him for a CT scan and this does not suggest any hernia. He says he has been referred to the urologist workup for this right groin pain which seems to be close to the base of the testicle but he says that workup has been unremarkable. PFSH Medical History Right groin pain Gallstones Migraine headache Hyperlipidemia HTN (hypertension) Surgical History Hx laparoscopic cholecystectomy (~07/30/23) History of right knee surgery History of laparoscopic appendectomy Hx of colonoscopy Social History Alcohol intake: never Patient Tobacco Use Status: Never used Tobacco Review of Systems Const Denies chills and Denies fever(s) Card Denies chest pain, Denies dyspnea and Denies dyspnea on exertion Resp Denies cough, Denies dyspnea and Denies dyspnea on exertion GI Denies hematochezia and Denies change in bowel habits Denies hematuria and Denies difficulty urinating Musc Denies back pain and Denies limited range of motion Neuro Denies focal weakness and Denies convulsions Psych Denies depression and Denies mood swings Physical Exam Const General: comfortable and no acute distress Orientation/consciousness: patient oriented x3 Neck Neck: Yes no lymphadenopathy Resp Auscultation: clear to auscultation bilaterally Cardio Rhythm: regular rhythm GI Other: No palpable right groin mass even with Valsalva, some tenderness on the area of the right groin near the base of the scrotum Palpation (GI): Soft to palpation, nontender and no guarding Neuro General: patient oriented x3 Assessment & Plan Assessment & Plan (1) Right groin pain: Code(s): R10.31 - Right lower quadrant pain Category: Medical Plan: His CAT scan and physical exam does not suggest a hernia. He continues to have this localized pain on the area. His urology workup did not reveal any pathology I am going to order for an MRI to rule out musculoskeletal problem. I will see him again in the office to discuss this. He understands the plan and is comfortable with this. Coding Level of Care Code Est Pt Level 3 (83805) Diagnoses Right groin pain R10.31
== END 2024-02-10 11:25 | disposition home or self-care (01) ==
PROVIDERS: PCP Internal Medicine; Visit Provider Surgery
DX: R10.31 Right lower quadrant pain (principal)
CPT/HCPCS: 99213

== ENCOUNTER → 2024-02-10 10:57 | Outpatient (BNVA) | payer OTHER, SELFPAY | PROVIDERS: PCP Internal Medicine; Visit Provider Surgery ==

== ENCOUNTER 2024-03-24 10:53 | Outpatient (REF) | payer OTHER, SELFPAY ==
--- NOTE | ~2024-03-24 | MR_ITS ---
EXAMINATION: MRI PELVIS WITH AND WITHOUT CONTRAST CLINICAL INFORMATION: Reason for Exam R10.31 - Right lower quadrant pain COMPARISON: CT abdomen/pelvis 11/12/2023 TECHNIQUE: Multiple routine MRI sequences through the pelvis were obtained on a high-field 1.5 May MRI before and after the uneventful administration of 10 mL of Gadavist gadolinium-based IV contrast. FINDINGS: The urinary bladder is unremarkable. Prostate and seminal vesicles are within normal limits. No bulky pelvic lymphadenopathy. No free fluid in the pelvis. Diverticular disease of the colon. No focal marrow signal abnormality. No destructive bone lesions. MR/MR pelvis wo/w con IMPRESSION: Unremarkable examination.
[2024-03-24] MEDS: gadobutroL 10 ML VIAL IVPUSH (12:20)
== END 2024-03-24 10:54 | disposition home or self-care (01) ==
LOC: HO.MRI 10:53
PROVIDERS: PCP Internal Medicine; Visit Provider Surgery
DX: R10.31 Right lower quadrant pain (principal)
CPT/HCPCS: 72197; A9585

== ENCOUNTER 2025-01-17 11:32 | Outpatient (AMB) | payer OTHER, SELFPAY ==
--- NOTE | 2025-01-17 11:35 | MHC.OFFVIS ---
Vital Signs 01/17/25 11:42 Height 6 ft 4 in Weight 243 lb BMI 29.6 BP 159/82 H Blood Pressure Location Rt brachial Position Sitting Pulse 60 Intake Visit Reasons: Groin pain Intake Note: Patient referred by pcp Dr. Lopez for Rt groin pain. Present for 2yrs. Patient c/o: denies burning sensation, redness. MRI pelvis: 03-24-2024 Rn Clinical Documentation Required: No Accompanied by: Self / Same As Patient Allergies cinnamon [CINNAMON] Adverse Reaction (Unknown, Verified 01/17/25 11:40) oral irritation Medication List - Last Reconciled 01/17/25 by Terrell Adorno MD aspirin 81 mg PO DAILY cholecalciferol (vitamin D3) (Vitamin D3) 125 mcg PO DAILY cyanocobalamin (vitamin B-12) (Vitamin B-12) 100 mcg PO DAILY ibuprofen 600 mg PO Q6H PRN ibuprofen 600 mg PO Q6H PRN [magnesium ] multivitamin 1 tab PO DAILY propranolol ER 60 mg PO DAILY turmeric root extract 500 mg PO DAILY HPI HPI Groin pain: Details: He continues to have this sharp groin pain especially at night. He says that this usually is not pad during the day but at the end of the day after working especially, he would feel this. He states that he feels something ?moving? in his right groin as well He has had previous multiple imaging studies which did not reveal any obvious pathology in the area. He has even been seen by urologist previously. [facility] Medical History Right groin pain Gallstones Migraine headache Hyperlipidemia HTN (hypertension) Surgical History Hx laparoscopic cholecystectomy (~07/30/23) History of right knee surgery History of laparoscopic appendectomy Hx of colonoscopy Social History Alcohol intake: never Patient Tobacco Use Status: Never used Tobacco Review of Systems Const Denies chills and Denies fever(s) Card Denies chest pain, Denies dyspnea and Denies dyspnea on exertion Resp Denies cough, Denies dyspnea and Denies dyspnea on exertion GI Denies hematochezia and Denies change in bowel habits Denies hematuria and Denies difficulty urinating Musc Denies back pain and Denies limited range of motion Neuro Denies focal weakness and Denies convulsions Psych Denies depression and Denies mood swings Physical Exam Vital Signs: Last Vital Signs Pulse 60 01/17/25 11:42 BP 159/82 H 01/17/25 11:42 BMI result Body Mass Index 29.6 Const General: comfortable and no acute distress Resp Effort & Inspection: normal respiratory effort Cardio Rate: regular rate GI Other: Question of a palpable hernia with Valsalva on the right groin Palpation (GI): Soft to palpation Assessment & Plan Assessment & Plan (1) Right groin pain: Code(s): R10.31 - Right lower quadrant pain Category: Medical Plan: Exam now suggest a palpable mass with Valsalva on the right groin suggestive of a hernia. I am going to repeat his CAT scan of the abdomen without contrast. I will see him again in the office thereafter. He is comfortable with the plan. Orders: Orders CT abdomen pelvis wo IV con Today R10.31 - Right lower quadrant pain Coding Level of Care Code Est Pt Level 3 (04522) Diagnoses Right groin pain R10.31
[2025-01-17 11:42] VITALS: BP 159/82; PULSE 60; BMI 29.6
--- OUTSIDE RECORDS SUMMARY | 2025-01-17 13:00 | XMS_ITS | Patient Health Record ---
Author Organization [facility] Address [address] [place] [id number] Care Team Providers Care Food Product Inspector Name Role Phone Richar Lopez MD Primary Care Provider Lewis Go Jr Unavailable Allergies Allergen (clinical drug ingredient) Drug/Non Drug Allergy documented on EMR Reaction Allergy Type Onset Date Status cinnamon bark Cinnamon Unknown Drug Allergy Act zach Reason For Referral No Information Medications Medication SIG (Take, Route, Frequency, Duration) Notes Start Date End Date Status Aspirin 81 81 MG 1 tablet Orally Once a day for 30 day(s) Active Daily Vitamin - 1 tablet Orally Once a day for 30 day(s) 03/02/2022 Active Propranolol HCl ER 60 MG Oral for 60 Active MiraLax (colon prep) 17 GM/SCOOP mixed with Gatorade or Crystal Light Orally begin at 5:00 p.m. the day before the procedure for 1 day 03/02/2022 Active Vitamin D-3 125 MCG (5000 UT) as directed Orally 03/02/2022 Active Vitamin B 12 100 MCG as directed Orally 03/02/2022 Active Magnesium 300 MG 1 capsule with a abi l Orally Once a day for 30 day(s) 03/02/2022 Active Turmeric 500 MG as directed Orally 03/02/2022 Active Immunizations Vaccine Route Administration Date Status Comme nts Influenza Unknown 08/05/2021 Administered Social History Tobacco Use: Social History Observation Description Date Details (start date - stop date) Never Smoker NA - NA Tobacco Use/Smoking Question Answer Notes Patient is a nonsmoker Alcohol Screen Question Answer Notes Did you have a drink containing alcohol in the p ast year? No Points 0 Interpretation Negative Problems Problem Type SNOMED Code ICD Code Onset Dates Problem Status W/U Status Risk Notes Problem 748253369 Colon cancer screening (Z12.11) Active confirmed Problem 363178461 Encounter for other preprocedural examination (Z01.818) Active confirmed Problem 748118047 Long-term use of aspirin therapy (Z79.82) Active confirmed Plan Of Treatment Future Test Test Name Order Date COLONOSCOPY 03/02/2022 Insurance Providers Payer Name Payer Address Payer Phone Subscriber Number Group Number Insured Name Patient Relationship to Insured Coverage Start Date Coverage End Date [facility] PROFESSIONAL CLAIMS [address] [place] [address] [id number] GAETANO FOSTER Self - patient is the insured Medical (General) History Medical History History ICD Code Hypertension Elevated cholesterol, diet controlled Normal echocardiogram recently Migraine headaches Surgical History Surgery Date(Month/Year) knee surgery appendix
== END 2025-01-17 11:59 | disposition home or self-care (01) ==
LOC: HO.HGS 11:32
PROVIDERS: PCP Internal Medicine; Referring Provider Internal Medicine; Visit Provider Surgery
DX: R10.31 Right lower quadrant pain (principal)
CPT/HCPCS: 99213

== ENCOUNTER 2025-03-06 16:13 | Outpatient (REF) | payer OTHER, SELFPAY ==
--- NOTE | ~2025-03-06 | CT_ITS ---
EXAMINATION: CT ABDOMEN AND PELVIS WITHOUT CONTRAST CLINICAL INFORMATION: Right lower quadrant pain, possible hernia DLP: 657 mGY*cm COMPARISON: November 12, 2023 TECHNIQUE: Multidetector volumetric imaging was performed from the superior aspect of the liver through the pubic symphysis. Sagittal and coronal reformatted images were obtained on the technologist's workstation. This CT examination was performed using dose optimization techniques as appropriate, variously including the following: *Automated exposure control *Adjustment of mA and/or kV according to patient size (this includes techniques or standardized protocols for targeted exams where dose is matched to indication/reason for exam; i.e. extremities or head) *Use of iterative reconstruction technique FINDINGS: LUNG BASES: The visualized lung bases are unremarkable. LIVER, GALLBLADDER, AND BILIARY TREE: The liver is normal in size, shape, and attenuation. No focal hepatic lesion or biliary ductal dilatation is present. The liver is surgically absent. There is a clip in the gallbladder fossa. PANCREAS: Unremarkable. SPLEEN: Unremarkable. ADRENAL GLANDS: Unremarkable. KIDNEYS AND URETERS: The kidneys are normal in size, shape, and attenuation. No hydronephrosis, hydroureter, or calculi seen. No perinephric stranding. BLADDER: There is tenting of the bladder toward the right inguinal region. GASTROINTESTINAL TRACT: Numerous pseudodiverticula are present in the descending and sigmoid colon. The appendix is surgically absent. There is a clip from the surgery. ABDOMINAL WALL: Fat-containing umbilical hernia is stable. There appears to be adipose tissue protruding into the right inguinal canal measuring 2 x 8.5 cm (transverse by CC). There is a fatty appearance of the left inguinal canal along the spermatic cord which could represent lipomatous spermatic cord versus a small knee. LYMPH NODES: Normal. VASCULAR: Minimal atherosclerotic calcifications are present. PELVIC VISCERA: Unremarkable. OSSEOUS STRUCTURES: Degenerative disc disease is present in the lower thoracic spine. Mild to moderate osteoarthritis is noted in both hip joints. [id number] degenerative changes are present in the SI joints. CT/CT abdomen pelvis wo IV con IMPRESSION: Suspected fat-containing right inguinal hernia. Lipomatous left right cord versus small pneumonia. Cholecystectomy and appendectomy. Descending and sigmoid colon diverticulosis. Degenerative disc disease, degenerative changes in the SI joints, and bilateral hip osteoarthritis. Fat-containing hernia, stable. Fleischner guidelines were followed. Electronically signed by: Mango White MD 03/06/2025 05:07 PM EDT
--- OUTSIDE RECORDS SUMMARY | 2025-03-06 18:59 | XMS_ITS | Patient Health Record ---
Author Organization [facility] Address [address] [place] [id number] Care Team Providers Care Mechanical Meter Tester Name Role Phone Richar Lopez MD Primary Care Provider Lewis Go Jr Unavailable [phone] Allergies Allergen (clinical drug ingredient) Drug/Non Drug [...] Problem Status W/U Status Risk Notes Problem [id number] Colon cancer screening (Z12.11) Active confirmed Problem 994233105 Encounter for other preprocedural examination (Z01.818) Active confirmed Problem 736870133 Long-term use of aspirin therapy (Z79.82) Active confirmed Plan Of Treatment Future Test Test Name Order Date COLONOSCOPY 03/02/2022 Insurance Providers Payer Name Payer Address Payer Phone Subscriber Number Group Number Insured Name Patient Relationship to Insured Coverage Start Date Coverage End Date [facility] PROFESSIONAL CLAIMS [address] [place] [address] [id number] GAETANO FOSTER Self - patient is the insured Medical (General) History Medical History History ICD Code Hypertension Elevated cholesterol, diet controlled Normal echocardiogram recently Migraine headaches Surgical History Surgery Date(Month/Year) knee surgery appendix
== END 2025-03-06 16:14 | disposition home or self-care (01) ==
LOC: HO.CT 16:13
PROVIDERS: PCP Internal Medicine; Visit Provider Surgery
DX: R10.31 Right lower quadrant pain (principal)
CPT/HCPCS: 74176

== ENCOUNTER → 2025-03-06 16:14 | Outpatient (BNV) | payer OTHER, SELFPAY | PROVIDERS: PCP Internal Medicine; Visit Provider Radiology Diagnostic Radiology | DX: K40.90 Unilateral inguinal hernia, without obstruction or gangrene, not specified as recurrent (principal) | CPT/HCPCS: 74176 ==

== ENCOUNTER 2025-03-29 15:29 | Outpatient (AMB) | payer OTHER, SELFPAY ==
--- NOTE | 2025-03-29 15:23 | A.OFFVIS_ITS ---
Vital Signs 03/29/25 15:36 Height 6 ft 4 in Weight 242 lb 8.136 oz BMI 29.5 Intake Visit Reasons: s/p CT 03/06/25 Intake Note: Patient is seen in office for CT scan results following right groin pain. Pt c/o:no changes since last visit Paper Carrier Required: No Accompanied by: Self / Same As Patient Allergies cinnamon (CINNAMON) Adverse Reaction (Unknown, Verified 03/29/25 15:35) oral irritation HPI HPI s/p CT 03/06/25: Details: 54-year-old male here for right groin pain. He has had this sharp pain in the right groin for a couple of years now. We had done workup before including MRI and CAT scan and this did not reveal a hernia He continued to have pain and tenderness on the exact same areas so I repeated the CAT scan 2 weeks ago. He is here to discuss the findings He denies GI complaints. He says that he really does not have any obvious mass on the right groin but he feels that the pain and discomfort worsens during the course of the day when he has been active or doing a lot of physical exertion., REPLACED BY [facility] Medical History Right inguinal hernia Right groin pain Gallstones Migraine headache Hyperlipidemia HTN (hypertension) Surgical History Hx laparoscopic cholecystectomy (~07/30/23) History of right knee surgery History of laparoscopic appendectomy Hx of colonoscopy Social History Alcohol intake: never Patient Tobacco Use Status: Never used Tobacco Review of Systems Const Denies chills and Denies fever(s) Card Denies chest pain, Denies dyspnea and Denies dyspnea on exertion Resp Denies cough, Denies dyspnea and Denies dyspnea on exertion GI Denies hematochezia and Denies change in bowel habits Denies hematuria and Denies difficulty urinating Musc Denies back pain and Denies limited range of motion Neuro Denies focal weakness and Denies convulsions Psych Denies depression and Denies mood swings Physical Exam Vital Signs: BMI result Body Mass Index 29.5 Const General: comfortable and no acute distress Orientation/consciousness: patient oriented x3 Neck Neck: Yes no lymphadenopathy Resp Auscultation: clear to auscultation bilaterally Cardio Rhythm: regular rhythm GI Other: Vague protuberant with Valsalva on the right groin although no obvious mass Palpation (GI): Soft to palpation, nontender and no guarding Neuro General: patient oriented x3 Assessment & Plan Assessment & Plan (1) Right inguinal hernia: Code(s): K40.90 - Unilateral inguinal hernia, without obstruction or gangrene, not specified as recurrent Category: Medical Plan: He has had this chronic pain right groin. He has had multiple workup in the past. I therefore repeated his CAT scan last month and this does show a fat containing right inguinal hernia. In view of symptoms, he wants to proceed with repair. I had a long discussion with the about the technique of repair with mesh placement. I reviewed the risks including but not limited to bleeding, infections, injury to bowel, vas deferens, testicle, recurrence, postop pain, as well as the benefits and alternatives. I also explained to him what to expect postoperatively He understands and wants to proceed. Coding Level of Care Code Est Pt Level 3 (99161) Diagnoses Right inguinal hernia K40.90
[2025-03-29 15:36] VITALS: BMI 29.5
== END 2025-03-29 15:43 | disposition home or self-care (01) ==
LOC: HO.HGS 15:30
PROVIDERS: PCP Internal Medicine; Visit Provider Surgery
DX: K40.90 Unilateral inguinal hernia, without obstruction or gangrene, not specified as recurrent (principal)
CPT/HCPCS: 99213

== ENCOUNTER 2025-04-05 09:28 | Day surgery (SDC) | payer OTHER, SELFPAY ==
--- OUTSIDE RECORDS SUMMARY | 2025-04-03 11:07 | XMS_ITS | Patient Health Record ---
Author Organization [facility] Address [address] [place] [id number] Care Team Providers Care Building Construction Inspector Name Role Phone Richar Lopez MD Primary Care Provider Lewis Go Jr Unavailable [phone] Allergies Allergen (clinical drug ingredient) Drug/Non [...] Problem Status W/U Status Risk Notes Problem [id number] Colon cancer screening (Z12.11) Active confirmed Problem 293824403 Encounter for other preprocedural examination (Z01.818) Active confirmed Problem 165223988 Long-term use of aspirin therapy (Z79.82) Active confirmed Plan Of Treatment Future Test Test Name Order Date COLONOSCOPY 03/02/2022 Insurance Providers Payer Name Payer Address Payer Phone Subscriber Number Group Number Insured Name Patient Relationship to Insured Coverage Start Date Coverage End Date [facility] PROFESSIONAL CLAIMS [address] [place] [address] [id number] GAETANO FOSTER Self - patient is the insured Medical (General) History Medical History History ICD Code Hypertension Elevated cholesterol, diet controlled Normal echocardiogram recently Migraine headaches Surgical History Surgery Date(Month/Year) knee surgery appendix
[2025-04-05] VITALS (8 sets, daily range): BP systolic 90–147; BP diastolic 48–91; PULSE 58–73; RESP 12–20; TEMP 36.3–36.9; O2SAT 95–98; BMI 29.6; BMI 29.3
[2025-04-05] MEDS: Lactated Ringers 1,000 ML 100 ML IVCONT (09:55)
--- NOTE | 2025-04-05 10:42 | HO.ANESPROP2 ---
[facility] Active Problems Active Problems: All Active Problems (Updated 03/29/25 @ 15:34 by Terrell Adorno MD) Right inguinal hernia (Acute) Right groin pain (Acute) Gallstones (Acute) Past Medical History Medical History Right inguinal hernia Right groin pain Gallstones Migraine headache Hyperlipidemia HTN (hypertension) Functional capacity: independent ambulation Family History Family history of problems with anesthesia: No Surgical History Surgical History Hx laparoscopic cholecystectomy (~07/30/23) History of right knee surgery History of laparoscopic appendectomy Hx of colonoscopy History of Problems with Anesthesia: No Social History Social History Alcohol intake: never Patient Tobacco Use Status: Never used Tobacco Have you been hit, kicked, punched, or otherwise hurt by someone within the past year? If so, by whom?: No Are you DNR?: No Advance Directives: No Advance Directives Information Provided: Yes Meds Allergies Allergy/AdvReac Type Severity Reaction Status Date / Time cinnamon (CINNAMON) AdvReac Unknown oral Verified 03/29/25 15:35 irritation Active Medications: Current Medications Lactated Ringer's (Lr) 1,000 mls @ 100 mls/hr IVCONT .Q10H JOSEPH Last Admin: 04/05/25 09:55 Dose: 100 mls/hr Home Medications ?Medication ?Instructions ?Recorded ?Confirmed ?Last Taken ?Type aspirin 81 mg tablet,delayed 81 mg PO DAILY 04/01/22 04/05/25 04/04/25 History release cholecalciferol (vitamin D3) 125 125 mcg PO DAILY 04/01/22 04/05/25 Unknown History mcg (5,000 unit) tablet (Vitamin D3) cyanocobalamin (vitamin B-12) 100 100 mcg PO DAILY 04/01/22 04/05/25 Unknown History mcg tablet (Vitamin B-12) multivitamin 1 tab PO DAILY 04/01/22 04/05/25 Unknown History propranolol 60 mg capsule,24 60 mg PO DAILY 04/01/22 04/05/25 04/07/22 History hr,extended release turmeric root extract 500 mg tablet 500 mg PO DAILY 04/01/22 04/05/25 02/03/25 History Exam Exam Date and Time: 04/05/2025 Height,Weight and Vital Signs: Height 6 ft 4 in Weight 109.3 kg Last Vital Signs Temp 98.5 F 04/05/25 09:32 Pulse 73 04/05/25 09:32 Resp 20 04/05/25 09:32 BP 147/91 H 04/05/25 09:32 Pulse Ox 98 04/05/25 09:32 O2 Del Method Room Air 04/05/25 09:32 Airway Mallampati Class: II TM Dist: >3cm Loose/Missing/Broken Teeth: No (normal dentition) Heart: rrr Lungs: cta Other: normal mentation Assessment and Plan Assessment Anesthesia Assessment: Anesthesia Plan Discussed and Chart Reviewed Final Anesthetic Review Family History of Problems with Anesthesia: No History of Problems with Anesthesia: No NPO: Yes ASA Class: II Final Preanesthetic Review: No Changes in Pt Med Stat, Meds/Allgs Chart Reviewed, Consent Obtained/Reviewed and Anes Risks/Benef Reviewed Patient Risk: Low Procedure Risk: Low Anesthetic Plan Anesthetic Plan: GA
--- NOTE | 2025-04-05 11:33 | MHC.SHP ---
Pre-Procedural Eval Section A - 24 Hr Update-Section A only Date of Service: 04/05/25 The patient is an INPATIENT: No The patient has been examined within 24 hours of the surgical procedure. The History & Physical has been completed within 30 days and I have reviewed it.: Yes Section B - Complete if H&P > 30 days Chief Complaint: Unilateral inguinal hernia, without obstruction Allergies: Allergies Allergy/AdvReac Type Severity Reaction Status Date / Time cinnamon (CINNAMON) AdvReac Unknown oral Verified 03/29/25 15:35 irritation Plan I have reviewed the history and physical and performed a pertinent physical examination on my patient. No changes have occurred unless specified. Time Spent With Patient Time: Total time managing care of this patient today ____ minutes.
--- NOTE | 2025-04-05 12:52 | W.PM.OPN ---
Operative Note Operative Note Date of Service: 04/05/25 Narrative: Preop diagnosis: Right inguinal hernia, reducible Postop diagnosis: Right inguinal hernia, reducible, indirect Procedure: Repair of right inguinal hernia with mesh Surgeon: Terrell Adorno MD assistant basketball coach: WILLA Salcedo The patient is a 54-year-old male with chronic right groin pain, with a CAT scan showing a right inguinal hernia containing fat. He understood the technique of the planned procedure. He was aware of the risks, benefits, and alternatives. He was brought to the operating room. He was placed supine under general anesthesia via laryngeal mask airway. The right groin was prepped and draped in the usual sterile fashion. A surgical time-out was done. The patient received cefazolin 2 g IV preoperatively . I infiltrated the planned line of incision with lidocaine 1%. I made a short incision in the skin with a blade 15 along an imaginary line from the the anterior superior iliac spine to the pubic ramus. This was carried down with electrocautery through the full-thickness of the skin and thick subcutaneous fat down to the external oblique aponeurosis. I bluntly dissected the external oblique aponeurosis to define the external ring. I made an incision on the external oblique aponeurosis with a blade 15 overlying the inguinal canal and extended this inferomedially to connect with the external ring. I applied hemostasts on the divided edges of the aponeurosis. I bluntly dissected the underside of the aponeurosis to create a pocket for the mesh . At this point, the patient had apparently vomited and had to be intubated for airway protection. I then proceeded to bluntly dissect the spermatic cord and its contents with my index finger until was able to pass a Jeane drain around this. The [place] drain was used for retraction. I identified the vas deferens and the accompanying vessels and these were protected during the dissection. By doing so was able to visualize a sac hernia which contained fat on the anteromedial aspect. I the hernia sac from the rest of the cord contents with blunt dissection and electrocautery until was able to reduce this through the internal ring. Since he has a long sac, I proceeded to transect this by applying a clamp proximally, dividing dissect distal to the clamp and applying a Polysorb 2-0 ligature on the stump. The spike was sent as a specimen. The rest of the stump was reduced through the internal ring. This was therefore an indirect hernia. I reinforced the internal ring with the medium-sized Prolene plug. The plug was secured with Prolene 2 sutures to the shelving edge of the inguinal meant laterally and the internal oblique superiorly medially. I reinforced the floor of the canal with a keyhole mesh. The tails of the mesh were passed around the cord at the level of the internal ring and were secured together with Prolene 2 sutures. I secured the mesh to the shelving edge of the inguinal meant laterally and the internal oblique superiorly medially as well as the pubic ramus inferomedially with Prolene 2 sutures. We observed for hemostasis. Once hemostasis was confirmed, we irrigated. I reapposed the external oblique aponeurosis with a running Polysorb 2-0 stitch to re-create the external ring. The thick subcutaneous layer was reapposed with Polysorb 3-0 simple interrupted sutures. Skin closure was achieved with Polysorb 4-0 subcuticular running stitch . The incision was infiltrated with Marcaine 0.5% for postop analgesia. Dressings were applied. The procedure was completed. The patient tolerated the procedure well. There were no immediate complications. Initial and final counts of sponges and instruments were correct. Estimated blood loss was less than 25 cc. The patient was extubated without difficulty and transferred to the recovery room with stable vital signs.
[2025-04-05] MEDS: oxyCODONE HCl Immed Release 5 MG TABLET PO (13:49)
== END 2025-04-05 14:42 | disposition home or self-care (01) ==
PROVIDERS: PCP Internal Medicine; Visit Provider Surgery
PROC: (CPT 49505; principal; 2025-04-05 12:40)
DX: K40.90 Unilateral inguinal hernia, without obstruction or gangrene, not specified as recurrent (principal); I10 Essential (primary) hypertension; E78.5 Hyperlipidemia, unspecified; G43.909 Migraine, unspecified, not intractable, without status migrainosus; Z90.49 Acquired absence of other specified parts of digestive tract; Z98.890 Other specified postprocedural states
CPT/HCPCS: 49505; 88302; C1781; J0131; J0330; J0690; J1100; J1885; J2003; J2250; J2371; J2405; J2704; J2795; J3010

== ENCOUNTER → 2025-04-05 09:28 | Outpatient (BNV) | payer OTHER, SELFPAY | PROVIDERS: PCP Internal Medicine; Visit Provider Surgery | DX: K40.90 Unilateral inguinal hernia, without obstruction or gangrene, not specified as recurrent (principal) | CPT/HCPCS: 49505 ==

== ENCOUNTER 2025-04-18 10:21 | Outpatient (AMB) | payer OTHER, SELFPAY ==
--- NOTE | 2025-04-18 10:24 | MHC.OFFVIS ---
Vital Signs 04/18/25 10:33 Height 6 ft 4 in Weight 234 lb BMI 28.5 BP 132/66 Blood Pressure Location Lt brachial Position Sitting Intake Visit Reasons: s/p RIH w/mesh Intake Note: Pt states, I'm here for my post op check. c/o pain for the first few days but improving. c/o swelling [employer] Service Technician Required: No Allergies cinnamon (CINNAMON) Adverse Reaction (Unknown, Verified 04/18/25 10:28) oral irritation Medication List - Last Reconciled 04/18/25 by Filiberto Moran RN aspirin 81 mg PO DAILY cholecalciferol (vitamin D3) (Vitamin D3) 125 mcg PO DAILY cyanocobalamin (vitamin B-12) (Vitamin B-12) 100 mcg PO DAILY multivitamin 1 tab PO DAILY propranolol ER 60 mg PO DAILY turmeric root extract 500 mg PO DAILY HPI HPI s/p RIH w/mesh: Details: Overall patient doing well. States the 1st few days he had pretty significant pain requiring him to take the oxycodone and alternate with Tylenol. He states he felt like he turned a corner over the weekend in his pain became more manageable. He is now no longer requiring oxycodone and occasionally now taking Tylenol for sleeping. He did note some significant scrotal swelling but this has been decreasing over the past week. He is urinating at baseline. Appetite and bowel function are at baseline, had some constipation after the 1st few days but took a stool softener and now has regular bowel movements. He denies any fevers or chills. Denies any discharge from the incision. He does report some feeling of pulling with certain movements PFSH Medical History Right inguinal hernia Right groin pain Gallstones Migraine headache Hyperlipidemia HTN (hypertension) Surgical History Hx laparoscopic cholecystectomy (~07/30/23) History of right knee surgery History of laparoscopic appendectomy Hx of colonoscopy Social History Alcohol intake: never Patient Tobacco Use Status: Never used Tobacco Physical Exam Vital Signs: Last Vital Signs BP 132/66 04/18/25 10:33 BMI result Body Mass Index 28.5 Const General: healthy appearing, comfortable and no acute distress Orientation/consciousness: patient oriented x3 Resp Effort & Inspection: normal respiratory effort and able to speak in complete sentences GI Other: Right inguinal hernia repair site: Steri-Strips in place, removed in office. Incision site appears to be healing well, intact, no surrounding erythema. There was 1 small pustules superior to the incision site, appears to be folliculitis. Incision site nontender no palpable fluid collection Inspection: No distended Palpation (GI): Soft to palpation and nontender Other: Mild scrotal edema right nontender Neuro General: patient oriented x3 Assessment & Plan Assessment & Plan (1) Hx of right inguinal hernia repair: Comment: March 2025, Dr. Adorno Code(s): Z98.890 - Other specified postprocedural states; Z87.19 - Personal history of other diseases of the digestive system Category: Medical Plan 54-year-old male s/p right inguinal hernia repair with mesh during to the office for routine 2 week follow up. Overall patient doing well, he is improving this week. He was experiencing significant pain in the 1st few days postop but his pain is now well controlled without medication. He does have some pain with ambulation, this is to be expected this point in reassured him that this will continue to improve over the coming weeks. He occasionally takes Tylenol at bedtime. Patient had right-sided scrotal edema and bruising over the 1st week, this is resolving but he does endorse some continued scrotal edema. He denies fevers or chills. On exam his abdomen is soft and benign, the incision site appears to be healing well. I removed the Steri-Strips and did notice 1 small 2 mm pustule superior to the incision site it appears to be consistent with folliculitis. The incision site itself appears to be healing well there is mild induration deep to the incision site, reassured him that this should improve with time. He does have mild right-sided scrotal swelling, ecchymosis has resolved. Again reassured him that this should improve over the coming weeks. We will continue with activity restrictions no heavy lifting greater than 15-20 lb for the next 2 weeks, patient asked about submerging in pools with the ocean. I recommended that he wait to do this to get the incision more time to heal, he is agreeable to this plan. He will return to the office for one-month follow up in 2 weeks he can reach out sooner with any concerns prior. Coding Level of Care Code Global (27214) Diagnoses Hx of right inguinal hernia repair Z98.890; Z87.19
[2025-04-18 10:33] VITALS: BP 132/66; BMI 28.5
--- OUTSIDE RECORDS SUMMARY | 2025-04-18 10:57 | XMS_ITS | Patient Health Record ---
Author Organization [facility] Address [address] [place] [phone] Care Team Providers Care Prosthodontist/Educator Name Role Phone Richar Lopez MD Primary [...] Problem Status W/U Status Risk Notes Problem 240202818 Colon cancer screening (Z12.11) Active confirmed Problem 994410231 Encounter for other preprocedural examination (Z01.818) Active confirmed Problem [id number] Long-term use of aspirin therapy (Z79.82) Active confirmed Plan Of Treatment Future Test Test Name Order Date COLONOSCOPY 03/02/2022 Insurance Providers Payer Name Payer Address Payer Phone Subscriber Number Group Number Insured Name Patient Relationship to Insured Coverage Start Date Coverage End Date [facility] PROFESSIONAL CLAIMS [address] [place] [address] [id number] GAETANO FOSTER Self - patient is the insured Medical (General) History Medical History History ICD Code Hypertension Elevated cholesterol, diet controlled Normal echocardiogram recently Migraine headaches Surgical History Surgery Date(Month/Year) knee surgery appendix
--- OUTSIDE RECORDS SUMMARY | 2025-04-18 10:57 | XMS_ITS | Clinical Summary ---
Author Organization [facility] Address [address] [place] [phone] Phone Care Team Providers Care Animal Caregiver Name Role Phone Richar Lopez MD Unavailable [phone] Richar Lopez MD Primary Care Provider [phone] Adán Munoz OD Unavailable [phone] Luis Serrano MD Unavailable Allergies Active Allergy Reactions Criticality Noted Date Comments Cinnamon Other (See Comments),Unknown 10/12/2018 Canker sores in mouth Other reaction(s): oral irritation Medications magnesium oxide 500 mg Cap 1 tablet with meal once a day Active cyanocobalamin, vitamin B-12, 250 mcg Lozg Take 1 tablet by mouth daily. Active cholecalciferol, vitamin D3, 1,000 unit capsule Take 1,000 Units by mouth daily. Active aspirin 81 MG EC tablet Take 81 mg by mouth daily. Active clobetasol (TEMOVATE) 0.05 % Gel APPLY TOPICALLY TWICE DAILY 60 g 1 1 Active Additional Information Patient taking differently: Topical 2 times daily PRN, Reported on 05/25/2022 betamethasone, augmented, (DIPROLENE) 0.05 % ointment 1 Active multivit-mineral s/FA/lycopene (ONE-A-DAY MEN'S ORAL) Take 1 tablet by mouth daily. Active TURMERIC ROOT EXTRACT ORAL daily 2 Active acetaminophen (TYLENOL) 325 mg tablet Take 650 mg by mouth every 6 (six) hours as needed. Active halobetasol (ULTRAVATE) 0.05 % creamIndications :Irritant contact dermatitis, unspecified trigger APPLY TOPICALLY TO HANDS TWICE DAILY NEEDED 50 g 3 4 Active valACYclovir (VALTREX) 1000 MG tabletIndication s:Rash and other nonspecific skin eruption take 2 tablets by mouth twice daily 32 tablet 3 4 Active Additional Information Patient taking differently:2,000 mg Oral 2 times daily,As needed for cold sores, Reported on 12/11/2024 propranoloL (INDERAL LA) 60 mg 24 hr capsuleIndicatio ns:Benign essential hypertension,Fred anya without status migrainosus, not intractable, unspecified migraine type TAKE 1 CAPSULE(60 MG) BY MOUTH DAILY 90 capsule 3 5 Active Active Problems Problem Noted Date Diagnosed Date Intermittent right lower quadrant abdominal pain 05/13/2023 Overview (04/30/2024): MRI done RLQ unremarkable Assessment & Plan (05/13/2023 12:25 PM EDT): 3-4 week hx of RLQ sensation after lifting. On exam there was a slight fullness noted with him bearing down- will do US to r/o hernia f/u after result Allergic rhinitis due to allergen 07/20/2017 Essential hypertension 07/20/2017 Hyperlipidemia 07/20/2017 Knee pain 07/20/2017 Lichen planus 07/20/2017 Low back pain 07/20/2017 Right knee pain 07/20/2017 Pure hypercholesterolemia 07/20/2017 Resolved Problems Problem Noted Date Diagnosed Date Resolved Date Amaurosis fugax 07/20/2017 07/20/2017 Encounters Date Type Department Care Team Description 04/18/2025 Refill [facility] [address] [place] [address] Richar Lopez MD Medication Refill 03/06/2025 Orders Only [facility] [address] [place] [address] ProviderRk MD 01/17/2025 Refill [facility] Medicine [address] [place], [place] [address] Richar Lopez MD Medication Refill from Last 3 Months Immunizations Immunization Administration Dates Next Due COVID-19 (Pre-07/05) Moderna Vaccine, mRNA, PF 0 02/07/2021,01/10/2021 INFLUENZA, SPLIT VIRUS, TRIVALENT PF 06/19/2015 Influenza Quadrivalent Preservative Free IM 07/15,10/03/2019 Td (adult) 5 Lf Tetanus Toxoid, PF, Adsorbed 12/2023,12/12/2000 Tdap 10/19/2013 Family History Medical History Relation Comments Hypertension Brother Diabetes Father Hypertension Father Stroke Father Heart disease Mother Relation Status Comments Brother Alive Father (Age 88) at 88 y/o h/o strokes x3 Mother Alive Social History Tobacco Use Types Packs/Day Years Used Date Smoking Tobacco: Never Smokeless Tobacco: Never Tobacco Cessation:Counseling Given: Not Answered Alcohol Use Standard Drinks/Week Comments Not Currently 0 (1 standard drink = 0.6 oz pure alcohol) history of etohism quit 06/2015 Child or Family Care Answer Date Record ed Do you have problems with on e of the following making it difficult for you to work, study, or receive health care? No 12/11/2024 Education Answer Date Recorded Are you interested in help w ith more adult education (for example, completing high school, GED, job training, learning the [place] language, technical skills, or developing parenting skills)? No 12/11/2024 Are you concerned about learning? Not on file 12/11/2024 No 12/11/2024 Yes 12/11/2024 Food Answer Date Recorded Within the past 6 months we worried whether our food would run out before we got money to buy more. Never True 12/11/2024 Within the past 6 months the food we bought just didn't last and we didn't have enough money to get more. Never True Residential Stability Answer Date Recor ded What is your housing situation today? I have chris sing 12/11/2024 How many times have you move d in the past 12 months? Zero (I did not move) 12/11/2024 Paying for Meds Answer Date Recorded Do you have trouble paying for medicines? No 12/11/2024 Paying Utility Bills Answer Date Record ed Do you have trouble paying your heating or elect ricity bill? No 12/11/2024 Transportation Answer Date Recorded Has the lack of transportati on kept you from medical appointments or from getting medications? No 12/11/2024 Unemployment Answer Date Recorded Are you currently unemployed or working on a part-time or temporary basis, and looking for work? No 12/01/2022 Digital Access Answer Date Recorded No 12/11/2024 Yes 12/11/2024 Do you have reliable internet access at home? Ye s 12/11/2024 Do you have a device (e.g., phone, tablet, computer) with a working camera? Yes 12/11/2024 Intimate Partner Violence Answer Date R ecorded Denied Basic Needs Not on file 12/11/2024 In the past 12 months have y ou been in a relationship with a person who hurts, threatens, or tries to control you? No 12/11/2024 Worried food would run out Not on file 12/11 In the past 12 months have y ou been in a relationship with a person who hurts, threatens, or tries to control you? No 12/11/2024 Sex and Gender Information Value Date Recorded Sex Assigned at Not on file Legal Sex Male 9:34 PM EDT Gender Identity Not on file Sexual Orientation Not on file Last Filed Vital Signs Vital Sign Reading Time Taken Comments Blood Pressure 120/75 12/11/2024 9:22 AM EDT Pulse 71 12/11/2024 9:22 AM EDT Temperature 37 C (98.6 F) 12/11/2024 9:22 AM EDT Respiratory Rate 16 12/11/2024 9:22 AM EDT Oxygen Saturation 96% 12/11/2024 9:22 AM EDT Inhaled Oxygen Concentration - - Weight 108.4 kg (239 lb) 12/11/2024 9:22 AM EDT Height 191 cm (6' 3.2 ) 12/11/2024 9:22 AM EDT Body Mass Index 29.72 12/11/2024 9:22 AM EDT Plan of Treatment Upcoming Encounters Date Type Department Care Team (Late st Contact Info) Description 12/12/2025 1:00 PM EDT Office Visit [facility] Internal Medicine [address] [place] [address] Richar Lopez MD [address] [place] [address] [email or web address] Health Maintenance Due Date Last Done Comments COLOGUARD 2015 FIT TEST 2015 FOBT 2015 SIGMOIDOSCOPY 2015 VIRTUAL COLONOSCOPY 2015 PNEUMOCOCCAL VACCINES (50+ years) (1 of 1 - PCV) 2020 ZOSTER VACCINES (1 of 2) 2020 COVID-19 VACCINE (3 - 2023- season) 2024 02/07/2021, 01/10/2021 BLOOD PRESSURE 06/12/2025 12/11/2024 DEPRESSION SCREENING 12/11/2025 12/11/2024 SCREENING FOR DIABETES 12/12/2027 12/11/2024, 2024 LIPID PANEL 12/11/2029 12/11/2024, 11/12, 12/01/2022, Additional history exists COLONOSCOPY 04/07/2032 04/07/2022, 10/09/2006 COLORECTAL CANCER SCREENING 04/07/2032 Adult Td,Tdap Booster 02/14/2034 02/15/2024 , 10/19/2013, 12/12/2000 HIV ONE-TIME SCREENING (18-65 YEARS) Completed 08/30/2020 HEPATITIS C SCREENING Completed 12/04/2021, 022 SMOKING STATUS SCREENING (Once After 26 Yrs) Completed 12/11/2024 HEPATITIS A VACCINES Aged Out No long er eligible based on patient's age to complete this topic HIB VACCINES Aged Out No longer eligi ble based on patient's age to complete this topic MENINGOCOCCAL VACCINES (ACWY) Aged Out No longer eligible based on patient's age to complete this topic MENINGOCOCCAL VACCINES (B) Aged Out N o longer eligible based on patient's age to complete this topic Medical Devices Not on file Procedures Procedure Name Priority Date/Time Associated Diagnosis Comments OUTSIDE CT ABD/PELVIS REPORT ONLY Routine 03/06/2025 5:13 PM EDT LIPID PANEL Routine 12/11/2024 10:43 AM EDT Pure hypercholesterolemia HM COLONOSCOPY FOR RESULT ENTRY ONLY Routine 04/07/2022 HEPATITIS C ANTIBODY, QUALITATIVE Routine 12/04/2021 10:39 AM EDT Need for hepatitis C screening test from Last 3 Months or Most Recently Relevant to Health Maintenance Results * Outside CT Abd/pelvis Report Only (03/06/2025 5:13 PM EDT) Historical Provider MD ZIMMERMAN CT ABD/PELVIS Final R esult * (ABNORMAL) Lipid panel (12/11/2024 10:43 AM EDT) HDL 56 mg/dL [facility] Comment: Interpretation <40 mg/dL: Low HDL cholesterol (major risk factor for CHD) Greater than or equal to 60 mg/dL: High HDL cholesterol ( negative risk factor for CHD) HDL - cholesterol is affected by a number of factors, e.g. smoking, excerise, hormones, sex and age. CHOLESTEROL 176 0 - 240 mg/dL [facility] TRIGLYCERIDES 170(H) 30 - 160 mg/dL [facility] LDL 86 50 - 129 mg/dL [facility] Comment: LDL levels in terms of risk for coronary heart disease: <100 mg/dL: Optimal 100-129 mg/dL: Near or above optimal 130-159 mg/dL: Borderline high 160-189 mg/dL: High >190 mg/dL: Very High CARDIAC RISK RATIO 3.1(L) 3.4 - 5.0 [facility] Blood 12/11/2024 10:4 3 AM EDT 12/11/2024 10:47 AM EDT Richar Lopez MD LAB BLOOD ORDERABLES Final Re sult [address] [address] * HM COLONOSCOPY FOR RESULT ENTRY ONLY (04/07/2022) Historical Provider HEALTH MAINTENANCE Edited Result - Final * Hepatitis C antibody, qualitative (12/04/2021 10:39 AM EDT) HCV NON-REACTIV E NON-REACTI VE [facility] Blood 12/04/2021 10:3 9 AM EDT 12/04/2021 10:44 AM EDT Richar Lopez MD LAB BLOOD ORDERABLES Final Re sult [facility] [address] [place] [address] from Last 3 Months or Most Recently Relevant to Health Maintenance Insurance O O HMO O O O HMO O HMO Care Teams Animal Caregiver Relationship Specialty Start Date End Date Richar Lopez MD [address] [place] [address] [email or web address] PCP - General Internal Medicine 07/20/17 Richar Lopez MD [address] [place] [address] Historical LMR Provider 07/03/17 Adán Munoz OD [address] [place] [id number] Optometry 08/30/20 Luis Serrano MD [address] [place] [id number] Neurology 10/14/20 Additional Source Comments The information contained in this document represents components of the legal health record. It is not the complete legal health record.[facility]
== END 2025-04-18 10:45 | disposition home or self-care (01) ==
LOC: HO.HGS 10:22
PROVIDERS: PCP Internal Medicine
DX: Z98.890 Other specified postprocedural states (principal); Z87.19 Personal history of other diseases of the digestive system
CPT/HCPCS: 99024

== ENCOUNTER 2025-05-02 13:57 | Outpatient (AMB) | payer OTHER, SELFPAY ==
--- NOTE | 2025-05-02 14:11 | MHC.OFFVIS ---
Vital Signs 05/02/25 14:14 Height 6 ft 4 in Weight 234 lb BMI 28.5 BP 116/66 Blood Pressure Location Lt brachial Position Sitting Respiration 16 Pulse 60 Intake Visit Reasons: 2 week s/p RIH w/mesh Intake Note: Pt states, I'm here for my post ot check. c/o pinching Outbound Sales Specialist Required: No Allergies cinnamon (CINNAMON) Adverse Reaction (Unknown, Verified 05/02/25 14:13) oral irritation Medication List - Last Reconciled 05/02/25 by Filiberto Moran RN aspirin 81 mg PO DAILY cholecalciferol (vitamin D3) (Vitamin D3) 125 mcg PO DAILY cyanocobalamin (vitamin B-12) (Vitamin B-12) 100 mcg PO DAILY multivitamin 1 tab PO DAILY propranolol ER 60 mg PO DAILY turmeric root extract 500 mg PO DAILY HPI HPI 2 week s/p RIH w/mesh: Details: Overall doing well does feel like he is improving. He has some pain with ambulation. Swelling of the testicles has improved but some remains. Describes some numbness around the incision site. He returned to work on light duty but even after a long day on his feet notice some pain in the area so has been making sure to take it easy during work. [facility] Medical History Right inguinal hernia Right groin pain Gallstones Migraine headache Hyperlipidemia HTN (hypertension) Surgical History Hx laparoscopic cholecystectomy (~07/30/23) History of right knee surgery History of laparoscopic appendectomy Hx of colonoscopy Social History Alcohol intake: never Patient Tobacco Use Status: Never used Tobacco Review of Systems Const All systems reviewed & are unremarkable except as noted in HPI and below Physical Exam Vital Signs: Last Vital Signs Pulse 60 05/02/25 14:14 Resp 16 05/02/25 14:14 BP 116/66 05/02/25 14:14 BMI result Body Mass Index 28.5 Const General: comfortable and no acute distress Orientation/consciousness: patient oriented x3 Resp Effort & Inspection: normal respiratory effort and able to speak in complete sentences GI Other: Right inguinal hernia repair site, incision healing well, intact, no surrounding erythema no discharge or drainage. Inspection: No distended Palpation (GI): Soft to palpation and nontender Neuro General: patient oriented x3 Assessment & Plan Assessment & Plan (1) Hx of right inguinal hernia repair: Comment: March 2025, Dr. Adorno Code(s): Z98.890 - Other specified postprocedural states; Z87.19 - Personal history of other diseases of the digestive system Category: Surgical Plan 54-year-old male s/p right inguinal hernia repair with mesh during to the office for routine one-month follow up. Overall patient doing well, he is improving from last visit. He does have some pain with ambulation when on his feet for long periods of time. Patient had right-sided scrotal edema, this has improved and there was very mild scrotal edema currently He denies fevers or chills. On exam his abdomen is soft and benign. The incision site itself appears to be healing well there is mild induration deep to the incision site, reassured him that this should improve with time. We will continue with activity restrictions no heavy lifting greater than 15-20 lb for the next 2 weeks, starting May 17 patient can resume activity. I recommended that he start slowly and begin at 50% of his baseline level activity and slowly progress towards baseline patient asked about submerging in pools with the ocean. He is okay to swim at this point. He is no longer requiring routine follow up, we will follow up on an as-needed basis with any concerns in the future Coding Level of Care Code Global (26339) Diagnoses Hx of right inguinal hernia repair Z98.890; Z87.19
[2025-05-02 14:14] VITALS: BP 116/66; PULSE 60; RESP 16; BMI 28.5
--- OUTSIDE RECORDS SUMMARY | 2025-05-02 14:54 | XMS_ITS | Patient Health Record ---
Author Organization [facility] Address [address] [place] [phone] Care Team Providers Care [employer] Certified Internetwork Expert Name Role Phone Richar Lopez MD Primary [...] Problem Status W/U Status Risk Notes Problem [id number] Colon cancer screening (Z12.11) Active confirmed Problem 279401617 Encounter for other preprocedural examination (Z01.818) Active confirmed Problem 698369268 Long-term use of aspirin therapy (Z79.82) Active confirmed Plan Of Treatment Future Test Test Name Order Date COLONOSCOPY 03/02/2022 Insurance Providers Payer Name Payer Address Payer Phone Subscriber Number Group Number Insured Name Patient Relationship to Insured Coverage Start Date Coverage End Date [facility] PROFESSIONAL CLAIMS [address] [place] [address] [id number] GAETANO FOSTER Self - patient is the insured Medical (General) History Medical History History ICD Code Hypertension Elevated cholesterol, diet controlled Normal echocardiogram recently Migraine headaches Surgical History Surgery Date(Month/Year) knee surgery appendix
--- OUTSIDE RECORDS SUMMARY | 2025-05-02 14:54 | XMS_ITS | Clinical Summary ---
Author Organization [facility] Address [address] [place] [id number] Phone Care Team Providers Care Personal Counselor Name Role Phone Richar Lopez MD Unavailable [phone] Richar Lopez MD Primary Care Provider [phone] Adán Munoz OD Unavailable [phone] Luis Serrano MD Unavailable Allergies Active Allergy Reactions Criticality Noted Date Comments Cinnamon Other (See Comments),Unknown 10/12/2018 Canker sores in mouth Other reaction(s): oral irritation Medications magnesium oxide 500 mg Cap 1 tablet with meal once a day Active cyanocobalamin, vitamin B-12, 250 mcg Lozg Take 1 tablet by mouth daily. Active cholecalciferol , vitamin D3, 1,000 unit capsule Take 1,000 Units by mouth daily. Active aspirin 81 MG EC tablet Take 81 mg by mouth daily. Active clobetasol (TEMOVATE) 0.05 % Gel APPLY TOPICALLY TWICE DAILY 60 g 1 07/28/20 21 Active Additional Information Patient taking differently: Topical 2 times daily PRN, Reported on 05/25/2022 betamethasone, augmented, (DIPROLENE) 0.05 % ointment 05/01/20 21 Active multivit-minera ls/FA/lycopene (ONE-A-DAY MEN'S ORAL) Take 1 tablet by mouth daily. Active TURMERIC ROOT EXTRACT ORAL daily 04/01/20 22 Active acetaminophen (TYLENOL) 325 mg tablet Take 650 mg by mouth every 6 (six) hours as needed. Active halobetasol (ULTRAVATE) 0.05 % creamIndication s:Irritant contact dermatitis, unspecified trigger APPLY TOPICALLY TO HANDS TWICE DAILY NEEDED 50 g 3 12/06/19 24 Active propranoloL (INDERAL LA) 60 mg 24 hr capsuleIndicati ons:Benign essential hypertension,Mi graine without status migrainosus, not intractable, unspecified migraine type TAKE 1 CAPSULE(60 MG) BY MOUTH DAILY 90 capsule 3 01/18/20 25 Active valACYclovir (VALTREX) 1000 MG tabletIndicatio ns:Rash and other nonspecific skin eruption TAKE 2 TABLETS BY MOUTH TWICE DAILY 32 tablet 3 04/18/20 25 Active valACYclovir (VALTREX) 1000 MG tabletIndicatio ns:Rash and other nonspecific skin eruption take 2 tablets by mouth twice daily 32 tablet 3 05/19/20 24 025 Discontinued Active Problems Problem Noted Date Diagnosed Date [...] Type Department Care Team Description 04/18/2025 Refill [facility] Internal Medicine [address] [place] [address] Richar Lopez MD Medication Refill 03/06/2025 Orders Only [facility] Internal Medicine [address] [place] [address] Provider, MD Rk from Last 3 Months Immunizations Immunization Administration Dates Next Due COVID-19 (Pre-07/05) Moderna Vaccine, mRNA, PF 0 02/07/2021,01/10/2021 INFLUENZA, SPLIT VIRUS, TRIVALENT PF 06/19/2015 Influenza Quadrivalent Preservative Free IM /11/2020,10/03/2019 Td (adult) 5 Lf Tetanus Toxoid, PF, [...] high school, GED, job training, learning the [place] language, technical skills, or developing parenting skills)? [...] Description 12/12/2025 1:00 PM EDT Office Visit Magalie Mensah [facility] Internal Medicine [address] [facility] [place] [address] Richar Lopez MD [address] [place] [address] [email or web address] Maintenance Due Date Last Done Comments COLOGUARD 2015 FIT TEST 2015 FOBT 2015 SIGMOIDOSCOPY 2015 VIRTUAL COLONOSCOPY 2015 PNEUMOCOCCAL VACCINES (50+ years) (1 of 1 - PCV) 2020 ZOSTER VACCINES (1 of 2) 2020 COVID-19 VACCINE (3 - season) 2024 02/07/2021, 01/10/2021 BLOOD PRESSURE 06/12/2025 [...] Routine 12/11/2024 10:43 AM EDT Pure hypercholesterolemia COLONOSCOPY FOR RESULT ENTRY ONLY Routine 04/07/2022 HEPATITIS C ANTIBODY, QUALITATIVE Routine 12/04/2021 10:39 AM EDT Need for hepatitis C screening test from Last 3 Months or Most Recently Relevant to Health Maintenance Results * Outside CT Abd/pelvis Report Only (03/06/2025 5:13 PM EDT) Historical Provider IMG CT ABD/PELVIS Final R esult * (ABNORMAL) Lipid panel (12/11/2024 10:43 AM EDT) HDL 56 mg/dL [facility] Comment: Interpretation <40 mg/dL: Low HDL cholesterol (major risk factor for CHD) Greater than or equal to 60 mg/dL: High HDL cholesterol ( negative risk factor for CHD) HDL - cholesterol is affected by a number of factors, e.g. smoking, excerise, hormones, sex and age. CHOLESTEROL 176 0 - 240 mg/dL [facility] TRIGLYCERIDES 170(H) 30 - 160 mg/dL [facility] LDL 86 50 - 129 mg/dL [facility] Comment: LDL levels in terms of risk for coronary heart disease: <100 mg/dL: Optimal 100-129 mg/dL: Near or above optimal 130-159 mg/dL: Borderline high 160-189 mg/dL: High >190 mg/dL: Very High CARDIAC RISK RATIO 3.1(L) 3.4 - 5.0 [facility] Blood 12/11/2024 10:4 3 AM EDT 12/11/2024 10:47 AM EDT Richar Lopez MD LAB BLOOD ORDERABLES Final Re sult [address] [id number] * COLONOSCOPY FOR RESULT ENTRY ONLY (04/07/2022) Historical Provider HEALTH MAINTENANCE Edited Result - Final * Hepatitis C antibody, qualitative (12/04/2021 10:39 AM EDT) HCV NON-REACTIV E NON-REACTI VE [facility] Blood 12/04/2021 10:3 9 AM EDT 12/04/2021 10:44 AM EDT us Richar Lopez MD LAB BLOOD ORDERABLES Final Re sult [address] [phone] from Last 3 Months or Most Recently Relevant to Health Maintenance Insurance O O HMO O O HMO HMO Member Subscriber Plan / Payer (Ef fective 2023-Present) Name:Payam Dejesus Relation to Subscriber:Self Name:PAYAM DEJESUS Payer ID:Not on file Type:HMO Address: [place] [id number] HMO HMO Member Subscriber Plan / Payer (Ef fective 2023-Present) Name:Payam Dejesus Relation to Subscriber:Self Name:PAYAM DEJESUS Payer ID:Not on file Type:HMO Address: [place] [phone] Care Teams Personal Counselor Relationship Specialty Start Date End Date Richar Lopez MD [address] [place] [id number] [email or web address] PCP - General Internal Medicine 07/20/17 Richar Lopez MD [address] [place] [phone] [email or web address] Historical LMR Provider 07/03/17 Adán Munoz OD [address] [place] [id number] Optometry 08/30/20 Luis Serrano MD [address] [place] [phone] Neurology 10/14/20 Additional Source Comments The information contained in this document represents components of the legal health record. It is not the complete legal health record.[facility]
== END 2025-05-02 14:28 | disposition home or self-care (01) ==
PROVIDERS: PCP Internal Medicine
DX: Z98.890 Other specified postprocedural states (principal); Z87.19 Personal history of other diseases of the digestive system
CPT/HCPCS: 99024